=== PATIENT | female | born 1960 | race Caucasian/White ===

== ENCOUNTER 2016-08-18 06:07 | Emergency (ER) | payer SELFPAY ==
[~2016-08-18] VITALS: Ht 160 cm; Wt 85.0 kg
[~2016-08-18 06:07] MED LIST: ASPI81 PO; GLIP10TA6 PO; HCTZ25 PO; LISI-363 PO; LOVA20TA PO; POTA-243 PO; PROM25TA5 PO; RANI150T PO
[2016-08-18 06:10] VITALS: RESP 14; O2SAT 98
[2016-08-18 06:12] VITALS: BP 175/91; PULSE 79; RESP 16; TEMP 98.3; O2SAT 96
[2016-08-18] MEDS ORDERED: SODIUM CHLOR 0.9% 1000 ML INJ 1,000 ML IV SCH (06:20)
[2016-08-18] MEDS ORDERED: HYDR25TA5 PO (06:22)
[2016-08-18] MEDS ORDERED: ASPI1TAB69 PO (06:22)
[2016-08-18] MEDS ORDERED: AMLO5TAB2 PO (06:22)
[2016-08-18] MEDS ORDERED: GLIP10TA6 PO (06:22)
[2016-08-18] MEDS ORDERED: LOVA20TA PO (06:22)
[2016-08-18] MEDS ORDERED: LISI-515 PO (06:22)
[2016-08-18] MEDS ORDERED: SODIUM CHLORIDE 0.9% FLUSH 10 ML FLUSH IVF PRN (06:30)
--- NOTE | 2016-08-18 06:43 | RADRPT ---
EXAM DATE/TIME: 08/18/2016 06:31 [facility] COMPARISON: CT BRAIN W/O CONTRAST, January 18, 2016, 15:41. INDICATIONS : Altered mental status RADIATION DOSE: 43.18 CTDIvol (mGy) MEDICAL HISTORY : Cerebrovascular disease. Cardiovascular disease Hypertension.Diabetes. SURGICAL HISTORY : Cholecystectomy. Tubal ligation. ENCOUNTER: Initial ACUITY: 1 day PAIN SCALE: 0/10 LOCATION: Bilateral cranial TECHNIQUE: Multiple contiguous axial images were obtained of the head. Using automated exposure control and adj ustment of the mA and/or kV according to patient size, radiation dose was kept as low as reasonably a chievable to obtain optimal diagnostic quality images. FINDINGS: CEREBRUM: The ventricles are normal for age. No evidence of midline shift, mass lesion, hemorrhage or acute in farction. No extra-axial fluid collections are seen. POSTERIOR FOSSA: The cerebellum and brainstem are intact. The 4th ventricle is midline. The cerebellopontine angle i s unremarkable. EXTRACRANIAL: The visualized portion of the orbits is intact. SKULL: The calvaria is intact. No evidence of skull fracture. CONCLUSION: Normal examination. Zaki Kamara Jr., MD on August 18, 2016 at 6:40 Board Certified Radiologist. This report was verified electronically.
--- NOTE | 2016-08-18 06:49 | PD ---
HPI Chief Complaint: Chest Pain Time Seen by Provider: 06:20 Travel History International Travel<30 days: No Contact w/Intl Traveler<30days: No Traveled to known affect area: No History of Present Illness HPI Patient 55-year-old female presents emergency department for evaluation of feeling like she was being closed in the boxes morning. Patient apparently awoke oximetry 20 minutes prior to arrival screaming that her chest hurt her. Patient's roommates at home called 911 after she started complaining of chest pain. Patient was just released from [facility] late last month she stated that she had a cardiac catheterization at time which showed 40-50% blockages. She did not have a heart attack at that time. Patient states she doesn't remember complaining of chest pain does remember feeling like she woke up in a box. EMS reported some mild slurred speech in route. Apparently the patient was a GCS of 9 initially and an NPA was passed into her nose which caused her to have a GCS of 15. Patient on arrival states she feels fine and has no complaints. She denies any chest pain abdominal pain nausea vomiting diarrhea extremity pain. EMS reported that the house was very unkempt. PFSH Past Medical History Autoimmune Disease: No Heart Rhythm Problems: No Cancer: No Cardiac Catheterization: Yes (X2) Cardiovascular Problems: Yes High Cholesterol: Yes Chest Pain: Yes Congestive Heart Failure: No Cerebrovascular Accident: Yes Diabetes: Yes Patient Takes Glucophage: Yes Diminished Hearing: No Endocrine: Yes Gastrointestinal Disorders: Yes GERD: Yes Genitourinary: No Hiatal Hernia: Yes Hypertension: Yes Immune Disorder: No Musculoskeletal: Yes (BROKEN TOE RECENTLY) Neurologic: Yes Psychiatric: No Reproductive: No Respiratory: No Immunizations Current: Yes Myocardial Infarction: Yes (X2) Thyroid Disease: No Tetanus Vaccination: < 5 Years Influenza Vaccination: No Menopausal: Yes Tubal Ligation: Yes Past Surgical History Abdominal Surgery: Yes (CHOLECYSTECTOMY) AICD: No Arteriovenous Shunt: No Cardiac Surgery: Yes (CARDIAC CATH X 2) Cholecystectomy: Yes Coronary Artery Bypass Graft: No Ear Surgery: No Endocrine Surgery: No Eye Surgery: No Genitourinary Surgery: No Gynecologic Surgery: Yes (TUBAL LIGATION) Insulin Pump: No Joint Replacement: No Oral Surgery: No Pacemaker: No Thoracic Surgery: No Other Surgery: Yes Family History Family Myocardial Infarction: Yes Social History Alcohol Use: No Tobacco Use: No Substance Use: No Allergies-Medications (Allergen,Severity, Reaction): Coded Allergies: Codeine (Verified Adverse Reaction, Intermediate, 'BENDS OVER' WITH PAIN, 08/18/16) Reported Meds & Prescriptions Reported Meds & Active Scripts Active Synthroid (Levothyroxine Sodium) 50 Mcg Tab 50 Mcg PO DAILY Reported Lisinopril 20 Mg Tab 20 Mg PO DAILY Aspirin 81 Mg Tabdr 81 Mg PO DAILY Glipizide 10 Mg Tab 10 Mg PO BIDAC Take 30 minutes before a meal Lovastatin 20 Mg Tab 20 Mg PO DAILY Hydrochlorothiazide 25 Mg Tab 25 Mg PO DAILY Amlodipine (Amlodipine Besylate) 5 Mg Tab 5 Mg PO DAILY Review of Systems Except as stated in HPI: all other systems reviewed are Neg Physical Exam Narrative GENERAL: Well-developed, unkempt, dry mucous membranes in no apparent distress. SKIN: Focused skin assessment warm/dry. No skin breakdown and no rashes around seen. HEAD: Atraumatic. Normocephalic. EYES: Pupils equal and round. No scleral icterus. No injection or drainage. ENT: No nasal bleeding or discharge. Mucous membranes pink and dry. NECK: Trachea midline. No JVD. CARDIOVASCULAR: Regular rate and rhythm. No murmur appreciated. RESPIRATORY: No accessory muscle use. Clear to auscultation. Breath sounds equal bilaterally. GASTROINTESTINAL: Abdomen soft, non-tender, nondistended. Hepatic and splenic margins not palpable. MUSCULOSKELETAL: No obvious deformities. No clubbing. No cyanosis. No edema. NEUROLOGICAL: Awake and alert. No obvious cranial nerve deficits. Motor grossly within normal limits. Normal speech. PSYCHIATRIC: Appropriate mood and affect; insight and judgment normal. Data Data Last Documented VS Vital Signs Date Time Temp Pulse Resp B/P Pulse Ox O2 Delivery O2 Flow Rate FiO2 08/18/16 10:19 98.1 78 17 128/79 99 08/18/16 07:11 Nasal Cannula 2 Orders Electrocardiogram (08/18/16 06:20) Ammonia (08/18/16 06:20) Complete Blood Count With Diff (08/18/16 06:20) Comprehensive Metabolic Panel (08/18/16 06:20) Prothrombin Time / Inr (Pt) (08/18/16 06:20) Act Partial Throm Time (Ptt) (08/18/16 06:20) Troponin I (08/18/16 06:20) Thyroid Stimulating Hormone (08/18/16 06:20) Urinalysis - C+S If Indicated (08/18/16 06:20) Ct Brain W/O Iv Contrast(Rout) (08/18/16 06:20) Blood Glucose (08/18/16 06:20) Ecg Monitoring (08/18/16 06:20) Iv Access Insert/Monitor (08/18/16 06:20) Oximetry (08/18/16 06:20) Sodium Chloride 0.9% Flush (Ns Flush) (08/18/16 06:30) Sodium Chlor 0.9% 1000 Ml Inj (Ns 1000 M (08/18/16 06:20) Drug Screen, Random Urine (08/18/16 06:20) Alcohol (Ethanol) (08/18/16 06:20) Salicylates (Aspirin) (08/18/16 06:20) Tylenol (Acetaminophen) (08/18/16 06:20) Chest, Single Ap (08/18/16 ) Levothyroxine (Synthroid) (08/18/16 08:30) Labs Laboratory Tests Test 08/18/16 08/18/16 06:40 07:30 White Blood Count 11.6 TH/MM3 Red Blood Count 5.20 MIL/MM3 Hemoglobin 14.7 GM/DL Hematocrit 43.6 % Mean Corpuscular Volume 83.9 FL Mean Corpuscular Hemoglobin 28.3 PG Mean Corpuscular Hemoglobin 33.7 % Concent Red Cell Distribution Width 13.9 % Platelet Count 277 TH/MM3 Mean Platelet Volume 9.6 FL Neutrophils (%) (Auto) 86.0 % Lymphocytes (%) (Auto) 11.1 % Monocytes (%) (Auto) 2.4 % Eosinophils (%) (Auto) 0.1 % Basophils (%) (Auto) 0.4 % Neutrophils # (Auto) 10.0 TH/MM3 Lymphocytes # (Auto) 1.3 TH/MM3 Monocytes # (Auto) 0.3 TH/MM3 Eosinophils # (Auto) 0.0 TH/MM3 Basophils # (Auto) 0.0 TH/MM3 CBC Comment DIFF FINAL Differential Comment Sodium Level 134 MEQ/L Potassium Level 5.2 MEQ/L Chloride Level 101 MEQ/L Carbon Dioxide Level 24.2 MEQ/L Anion Gap 9 MEQ/L Blood Urea Nitrogen 19 MG/DL Creatinine 1.06 MG/DL Estimat Glomerular Filtration 53 ML/MIN Rate Random Glucose 61 MG/DL Calcium Level 9.0 MG/DL Total Bilirubin 0.5 MG/DL Aspartate Amino Transf 61 U/L (AST/SGOT) Alanine Aminotransferase 60 U/L (ALT/SGPT) Alkaline Phosphatase 96 U/L Ammonia 32 MCMOL/L Troponin I 0.02 NG/ML Total Protein 7.8 GM/DL Albumin 3.5 GM/DL Thyroid Stimulating Hormone 4.290 uIU/ML 3rd Gen Salicylates Level LESS THAN 1.7 MG/DL Acetaminophen Level LESS THAN 2.0 MCG/ML Ethyl Alcohol Level LESS THAN 3 MG/DL Prothrombin Time 10.8 SEC Prothromb Time International 1.0 RATIO Ratio Activated Partial 24.7 SEC Thromboplast Time MDM Medical Decision Making Medical Screen Exam Complete: Yes Emergency Medical Condition: Yes Interpretation(s) EKG shows normal sinus rhythm with a normal axis normal R-wave progression. Intervals within normal limits. Is a nonspecific T-wave abnormality which is highly inconsistent with ischemia. This borderline EKG. Differential Diagnosis Altered mental status, ACS unlikely, NV unlikely, brief psychotic episode is possible. Narrative Course Patient was roomed in emergency department, records been requested from [facility]. Her initial EKG is reassuring. CT head is negative. Discussed with Dr. Coker to follow up labs and disposition appropriately. Her description of what happened actually sounds similiar to childhood night-terrors. Highly atypical for ACS or serious underlying pathology. Scripts Levothyroxine (Synthroid)50 Mcg Tab50 Mcg PO DAILY #30 TAB Ref 0 Prov:Nicholas Coker MD 08/18/16 Brody Gregg MD Aug 18, 2016 06:49
[2016-08-18 07:08] LABS: BASOPHIL % 0.4 % (0.0-2.0); EOSINOPHIL % 0.1 % (0.0-4.0); HEMATOCRIT 43.6 % (35.0-46.0); HEMO FLAGS DIFF FINAL; LYMPH % 11.1 % (9.0-44.0); LYMPHOCYTE # 1.3 TH/MM3 (1.0-4.8); MEAN CELL VOLUME 83.9 FL (80.0-100.0); MEAN CORPUSCULAR HEMOGLOBIN 28.3 PG (27.0-34.0); MEAN CORPUSCULAR HGB CONC 33.7 % (32.0-36.0); MONO % 2.4 % (0.0-8.0); PLATELET COUNT 277 TH/MM3 (150-450); RED CELL DISTRIBUTION WIDTH 13.9 % (11.6-17.2); WHITE BLOOD COUNT 11.6 TH/MM3 (4.0-11.0)
[2016-08-18 07:11] VITALS: BP 141/81; PULSE 78; RESP 16; RESP 18; TEMP 97.8; O2SAT 100; O2SAT 98
[2016-08-18 07:32] LABS: ALKALINE PHOSPHATASE 96 U/L (45-117); TOTAL BILIRUBIN ADULT 0.5 MG/DL (0.2-1.0)
[2016-08-18 07:41] LABS: ALT (GPT) 60 U/L (10-53); ANION GAP 9 MEQ/L (5-15); AST (GOT) 61 U/L (15-37); BICARBONATE 24.2 MEQ/L (21.0-32.0); BLOOD UREA NITROGEN 19 MG/DL (7-18); CHLORIDE 101 MEQ/L (98-107); GLOMERULAR FILTRATION RATE 53 ML/MIN (>89); SODIUM (NA) 134 MEQ/L (136-145)
[2016-08-18 07:42] LABS: POTASSIUM 5.2 MEQ/L (3.5-5.1)
[2016-08-18 07:43] LABS: ACETAMINOPHEN LESS THAN 2.0 MCG/ML (10.0-30.0)
--- NOTE | 2016-08-18 07:44 | PD ---
Physical Exam Date Seen by Provider: Aug 18, 2016 Time Seen by Provider: 07:42 Narrative 55-year-old female came to the emergency room for bizarre events. She woke up screaming from her sleep and said she felt like she woke up in a box. She was seen by the previous ER physician. EMS said when they got her initially she had a GCS of 9 but then came back to GCS of 14-15 by the time she arrived to the emergency room. Here she has not complained of any pain of any sort and keeps repeating that she felt like she woke up in a box. There was a CAT scan of her head done which was within normal limits. Sign out was to follow-up on her blood test results. I'm waiting for the labs to come back. Meanwhile I went and reassessed her. She was asleep but then woke up and said she was cold. She looked a little anxious. But did not appear to be in any distress. Denies any pain anywhere. If the blood test results are within normal limit I will discharge her home. Data Data Last Documented VS Vital Signs Date Time Temp Pulse Resp B/P Pulse Ox O2 Delivery O2 Flow Rate FiO2 08/18/16 10:19 98.1 78 17 128/79 99 08/18/16 07:11 Nasal Cannula 2 Orders Electrocardiogram (08/18/16 06:20) Ammonia (08/18/16 06:20) Complete Blood Count With Diff (08/18/16 06:20) Comprehensive Metabolic Panel (08/18/16 06:20) Prothrombin Time / Inr (Pt) (08/18/16 06:20) Act Partial Throm Time (Ptt) (08/18/16 06:20) Troponin I (08/18/16 06:20) Thyroid Stimulating Hormone (08/18/16 06:20) Ct Brain W/O Iv Contrast(Rout) (08/18/16 06:20) Blood Glucose (08/18/16 06:20) Ecg Monitoring (08/18/16 06:20) Iv Access Insert/Monitor (08/18/16 06:20) Oximetry (08/18/16 06:20) Sodium Chloride 0.9% Flush (Ns Flush) (08/18/16 06:30) Sodium Chlor 0.9% 1000 Ml Inj (Ns 1000 M (08/18/16 06:20) Alcohol (Ethanol) (08/18/16 06:20) Salicylates (Aspirin) (08/18/16 06:20) Tylenol (Acetaminophen) (08/18/16 06:20) Chest, Single Ap (08/18/16 ) Levothyroxine (Synthroid) (08/18/16 08:30) Labs Laboratory Tests Test 08/18/16 08/18/16 06:40 07:30 White Blood Count 11.6 TH/MM3 Red Blood Count 5.20 MIL/MM3 Hemoglobin 14.7 GM/DL Hematocrit 43.6 % Mean Corpuscular Volume 83.9 FL Mean Corpuscular Hemoglobin 28.3 PG Mean Corpuscular Hemoglobin 33.7 % Concent Red Cell Distribution Width 13.9 % Platelet Count 277 TH/MM3 Mean Platelet Volume 9.6 FL Neutrophils (%) (Auto) 86.0 % Lymphocytes (%) (Auto) 11.1 % Monocytes (%) (Auto) 2.4 % Eosinophils (%) (Auto) 0.1 % Basophils (%) (Auto) 0.4 % Neutrophils # (Auto) 10.0 TH/MM3 Lymphocytes # (Auto) 1.3 TH/MM3 Monocytes # (Auto) 0.3 TH/MM3 Eosinophils # (Auto) 0.0 TH/MM3 Basophils # (Auto) 0.0 TH/MM3 CBC Comment DIFF FINAL Differential Comment Sodium Level 134 MEQ/L Potassium Level 5.2 MEQ/L Chloride Level 101 MEQ/L Carbon Dioxide Level 24.2 MEQ/L Anion Gap 9 MEQ/L Blood Urea Nitrogen 19 MG/DL Creatinine 1.06 MG/DL Estimat Glomerular Filtration 53 ML/MIN Rate Random Glucose 61 MG/DL Calcium Level 9.0 MG/DL Total Bilirubin 0.5 MG/DL Aspartate Amino Transf 61 U/L (AST/SGOT) Alanine Aminotransferase 60 U/L (ALT/SGPT) Alkaline Phosphatase 96 U/L Ammonia 32 MCMOL/L Troponin I 0.02 NG/ML Total Protein 7.8 GM/DL Albumin 3.5 GM/DL Thyroid Stimulating Hormone 4.290 uIU/ML 3rd Gen Salicylates Level LESS THAN 1.7 MG/DL Acetaminophen Level LESS THAN 2.0 MCG/ML Ethyl Alcohol Level LESS THAN 3 MG/DL Prothrombin Time 10.8 SEC Prothromb Time International 1.0 RATIO Ratio Activated Partial 24.7 SEC Thromboplast Time MDM Supervised Visit with RASHID: No Narrative Course 8:20 AM blood test results of back and TSH is elevated. I've ordered 50 g of Synthroid for her to be taken here. She will be discharged home on a prescription. Chest x-ray was not officially read but I looked at it and it looked to be within normal limits. Diagnosis Primary Impression: Panic attack Additional Impressions: Hypothyroidism Qualified Code: E03.9 - Hypothyroidism, unspecified type Anxiety Referrals: Primary Care Physician 2 days Additional Instruction: Please return to the ER if the condition worsens or any other new concerns. Take the medication as per the prescription direction. Follow-up with your primary care in couple days. You should get a repeat thyroid tests done after 2 weeks of being on medication. Med/Other Pt SpecificInfo: Prescription(s) given Scripts Levothyroxine (Synthroid)50 Mcg Tab50 Mcg PO DAILY #30 TAB Ref 0 Prov:Nicholas Coker MD 08/18/16 Disposition: 01 DISCHARGE HOME Condition: Stable Nicholas Coker MD Aug 18, 2016 07:44
[2016-08-18 08:17] LABS: APTT (PATIENT) 24.7 SEC (24.3-30.1); PROTHROMBIN TIME - PATIENT 10.8 SEC (9.8-11.6)
[2016-08-18] MEDS ORDERED: LEVO.05 PO (08:22)
[2016-08-18] MEDS ORDERED: LEVOTHYROXINE SODIUM 50 MCG TAB PO ONE (08:30)
--- NOTE | 2016-08-18 09:18 | RADRPT ---
EXAM DATE/TIME: 08/18/2016 07:41 [facility] COMPARISON: CHEST SINGLE AP, January 18, 2016, 15:40. INDICATIONS : Chest pain, shortness of breath. MEDICAL HISTORY : Hypertension. Myocardial infarction. Diabetes mellitus type II. GERD. Smoker. SURGICAL HISTORY : Cholecystectomy. ENCOUNTER: Initial ACUITY: 2 days PAIN SCORE: 4/10 LOCATION: Bilateral chest FINDINGS: The heart is normal size. The lungs are clear. The mediastinal contours are within normal limits. The bony structures demonstrate mild degenerative changes but are otherwise intact. The examination does demonstrate to radiodense foreign bodies over the neck what appears to be the ba se of the ear ring. The second is somewhat lower. Presumably these are both outside the patient if th ere's concern for foreign body repeat examination should be performed. CONCLUSION: 1. No acute cardiopulmonary findings. Please see above. Naeem Dean MD on August 18, 2016 at 9:15 Board Certified Radiologist. This report was verified electronically.
[2016-08-18 10:19] VITALS: BP 128/79; TEMP 98.1
--- NOTE | 2016-08-18 10:36 | EKG ---
Date Performed: 08/18/2016 Time Performed: 06:14:30 PTAGE: 55 years EKG: Sinus rhythm NONSPECIFIC T-WAVE ABNORMALITY Compared to previous tracing, the patient is no longer bradycardic . BORDERLINE ECG PREVIOUS TRACING : 01/18/2016 15.52 DOCTOR: Misty Leung Interpretating Date/Time 08/18/2016 10:27:59
== END 2016-08-18 10:20 | disposition home or self-care (01) ==
LOC: NEPE 06:07
DX: F41.0 Panic disorder [episodic paroxysmal anxiety] (principal); E03.9 Hypothyroidism, unspecified; Z79.899 Other long term (current) drug therapy
CPT/HCPCS: 70450; 71010; 80053; 80307; 82140; 84443; 84484; 85025; 85610; 85730; 93005; 96360; 99285; J7030

== ENCOUNTER 2017-01-19 22:59 | Emergency (ER) | payer SELFPAY ==
[~2017-01-19] VITALS: Ht 157.5 cm; Wt 86.0 kg
[~2017-01-19 22:59] MED LIST changes: +AMLO5TAB2 PO; +ASPI1TAB69 PO; -ASPI81 PO; -HCTZ25 PO; +HYDR25TA5 PO; +LEVO.05 PO; -LISI-363 PO; +LISI-515 PO; -POTA-243 PO; -PROM25TA5 PO; -RANI150T PO
[2017-01-19 23:03] VITALS: BP 210/101; PULSE 50; RESP 16; TEMP 98.5; O2SAT 98
[2017-01-19] MEDS ORDERED: METF850T PO (23:35)
[2017-01-19 23:55] VITALS: BP 181/91; PULSE 44; RESP 16; O2SAT 100
[2017-01-20] MEDS ORDERED: cloNIDine HCL 0.1 MG TAB PO ONE
[2017-01-20] MEDS ORDERED: ORPHENADRINE INJ 60 MG/2 ML AMP IM ONE
--- NOTE | 2017-01-20 00:04 | PD ---
HPI Chief Complaint: Pain: Acute or Chronic Time Seen by Provider: 23:32 Travel History International Travel<30 days: No Contact w/Intl Traveler<30days: No Traveled to known affect area: No History of Present Illness HPI Patient is a 56-year-old female presenting to the emergency department for evaluation of right hip pain. Patient states the pain started after she stepped on some unknown object in her yard this afternoon. She did not fall or injure her hip at that time. She states that after she stepped on something she went into her house and sat on the couch and an hour or 2 later she got up and that's when her hip started hurting. Patient states the pain is a 10 out of 10, she states it's aching and sore when she tries to walk. She denies any numbness, weakness, bladder or bowel incontinence, saddle paresthesia. Again patient did not injure her hip, she didn't fall on it or twist it. PFSH Past Medical History Cardiac Catheterization: Yes (X2) Cardiovascular Problems: Yes High Cholesterol: Yes Chest Pain: Yes Cerebrovascular Accident: Yes Coronary Artery Disease: Yes Diabetes: Yes Patient Takes Glucophage: Yes Gastrointestinal Disorders: Yes GERD: Yes Hiatal Hernia: Yes Hypertension: Yes Neurologic: Yes Immunizations Current: Yes Myocardial Infarction: Yes (X2) Thyroid Disease: Yes Tetanus Vaccination: Unknown ?: Not Menopausal: Yes Tubal Ligation: Yes Past Surgical History Abdominal Surgery: Yes (CHOLECYSTECTOMY) AICD: No Arteriovenous Shunt: No Cardiac Surgery: Yes (CARDIAC CATH X 2) Cholecystectomy: Yes Coronary Artery Bypass Graft: No Ear Surgery: No Endocrine Surgery: No Eye Surgery: No Genitourinary Surgery: No Gynecologic Surgery: Yes (TUBAL LIGATION) Insulin Pump: No Joint Replacement: No Oral Surgery: No Pacemaker: No Thoracic Surgery: No Other Surgery: Yes Social History Alcohol Use: No Tobacco Use: No Substance Use: No Allergies-Medications (Allergen,Severity, Reaction): Coded Allergies: codeine (Verified Adverse Reaction, Intermediate, 'BENDS OVER' WITH PAIN, 01/19/17) Reported Meds & Prescriptions Reported Meds & Active Scripts Active Meloxicam 15 Mg Tab 15 Mg PO DAILY PRN Metformin (Metformin HCl) 850 Mg Tab 850 Mg PO DAILY 30 Days With a meal Synthroid (Levothyroxine Sodium) 50 Mcg Tab 50 Mcg PO DAILY Lisinopril 20 Mg Tab 20 Mg PO DAILY Glipizide 10 Mg Tab 10 Mg PO BIDAC Take 30 minutes before a meal Lovastatin 20 Mg Tab 20 Mg PO DAILY Hydrochlorothiazide 25 Mg Tab 25 Mg PO DAILY Amlodipine (Amlodipine Besylate) 5 Mg Tab 10 Mg PO DAILY Reported Aspirin 81 Mg Tabdr 81 Mg PO DAILY Review of Systems Except as stated in HPI: all other systems reviewed are Neg Musculoskeletal: Positive: Myalgias, Arthralgias, Pain Physical Exam Narrative GENERAL: Overweight, well-developed, alert female. Resting comfortably in no acute distress. SKIN: Warm and dry. No rash or obvious lesions noted. HEAD: Normocephalic. EYES: No scleral icterus. No injection or drainage. NECK: Supple, trachea midline. No JVD or lymphadenopathy. CARDIOVASCULAR: Regular rate and rhythm without murmurs, gallops, or rubs. RESPIRATORY: Breath sounds equal bilaterally. No accessory muscle use. GASTROINTESTINAL: Abdomen soft, non-tender, nondistended. MUSCULOSKELETAL: No cyanosis, or edema. Right hip is nontender to palpation, full range of motion.. No pain in paraspinal musculature lumbar region or on lumbar spine. No step-off noted. Patient is neurovascularly intact. BACK: Nontender without obvious deformity. No CVA tenderness. Data Data Last Documented VS Vital Signs Date Time Temp Pulse Resp B/P (MAP) Pulse Ox O2 Delivery O2 Flow Rate FiO2 01/20/17 03:11 165/70 (101) 01/19/17 23:55 44 16 100 Room Air 01/19/17 23:03 98.5 Orders Orders Orphenadrine Inj (Norflex Inj) (01/20/17 00:00) Clonidine (Catapres) (01/20/17 00:00) Complete Blood Count With Diff (01/20/17 01:00) Comprehensive Metabolic Panel (01/20/17 01:00) Troponin I (01/20/17 01:00) Lisinopril (Prinivil) (01/20/17 01:00) Hydrochlorothiazide (Hydrodiuril) (01/20/17 01:00) Amlodipine (Norvasc) (01/20/17 01:00) Labs Laboratory Tests Test 01/20/17 01:40 01/20/17 02:25 Blood Urea Nitrogen 17 MG/DL Creatinine 0.99 MG/DL Random Glucose 113 MG/DL Total Protein 6.8 GM/DL Albumin 3.2 GM/DL Calcium Level 8.5 MG/DL Alkaline Phosphatase 93 U/L Aspartate Amino Transf (AST/SGOT) 20 U/L Alanine Aminotransferase (ALT/SGPT) 26 U/L Total Bilirubin 0.2 MG/DL Sodium Level 142 MEQ/L Potassium Level 3.6 MEQ/L Chloride Level 110 MEQ/L Carbon Dioxide Level 24.8 MEQ/L Anion Gap 7 MEQ/L Estimat Glomerular Filtration Rate 58 ML/MIN Troponin I LESS THAN 0.02 NG/ML White Blood Count 7.5 TH/MM3 Red Blood Count 4.61 MIL/MM3 Hemoglobin 13.1 GM/DL Hematocrit 39.3 % Mean Corpuscular Volume 85.2 FL Mean Corpuscular Hemoglobin 28.5 PG Mean Corpuscular Hemoglobin Concent 33.4 % Red Cell Distribution Width 12.6 % Platelet Count 214 TH/MM3 Mean Platelet Volume 8.5 FL Neutrophils (%) (Auto) 52.8 % Lymphocytes (%) (Auto) 35.6 % Monocytes (%) (Auto) 8.7 % Eosinophils (%) (Auto) 2.3 % Basophils (%) (Auto) 0.6 % Neutrophils # (Auto) 4.0 TH/MM3 Lymphocytes # (Auto) 2.7 TH/MM3 Monocytes # (Auto) 0.6 TH/MM3 Eosinophils # (Auto) 0.2 TH/MM3 Basophils # (Auto) 0.0 TH/MM3 CBC Comment DIFF FINAL Differential Comment MDM Medical Decision Making Medical Screen Exam Complete: Yes Emergency Medical Condition: Yes Interpretation(s) Vital Signs Date Time Temp Pulse Resp B/P (MAP) Pulse Ox O2 Delivery O2 Flow Rate FiO2 01/20/17 03:11 165/70 (101) 01/20/17 02:38 195/84 (121) 01/20/17 01:30 231/104 (146) 01/19/17 23:55 44 16 181/91 (121) 100 Room Air 01/19/17 23:03 98.5 50 16 210/101 (137) 98 Laboratory Tests Test 01/20/17 01:40 01/20/17 02:25 Blood Urea Nitrogen 17 MG/DL Creatinine 0.99 MG/DL Random Glucose 113 MG/DL Total Protein 6.8 GM/DL Albumin 3.2 GM/DL Calcium Level 8.5 MG/DL Alkaline Phosphatase 93 U/L Aspartate Amino Transf (AST/SGOT) 20 U/L Alanine Aminotransferase (ALT/SGPT) 26 U/L Total Bilirubin 0.2 MG/DL Sodium Level 142 MEQ/L Potassium Level 3.6 MEQ/L Chloride Level 110 MEQ/L Carbon Dioxide Level 24.8 MEQ/L Anion Gap 7 MEQ/L Estimat Glomerular Filtration Rate 58 ML/MIN Troponin I LESS THAN 0.02 NG/ML White Blood Count 7.5 TH/MM3 Red Blood Count 4.61 MIL/MM3 Hemoglobin 13.1 GM/DL Hematocrit 39.3 % Mean Corpuscular Volume 85.2 FL Mean Corpuscular Hemoglobin 28.5 PG Mean Corpuscular Hemoglobin Concent 33.4 % Red Cell Distribution Width 12.6 % Platelet Count 214 TH/MM3 Mean Platelet Volume 8.5 FL Neutrophils (%) (Auto) 52.8 % Lymphocytes (%) (Auto) 35.6 % Monocytes (%) (Auto) 8.7 % Eosinophils (%) (Auto) 2.3 % Basophils (%) (Auto) 0.6 % Neutrophils # (Auto) 4.0 TH/MM3 Lymphocytes # (Auto) 2.7 TH/MM3 Monocytes # (Auto) 0.6 TH/MM3 Eosinophils # (Auto) 0.2 TH/MM3 Basophils # (Auto) 0.0 TH/MM3 CBC Comment DIFF FINAL Differential Comment Vital Signs Date Time Temp Pulse Resp B/P (MAP) Pulse Ox O2 Delivery O2 Flow Rate FiO2 01/19/17 23:55 44 16 181/91 (121) 100 Room Air 01/19/17 23:03 98.5 50 16 210/101 (137) 98 Differential Diagnosis Osteoarthritis versus muscle strain versus muscle spasm versus radiculopathy versus other Narrative Course Patient is a 56-year-old female presenting to the emergency department evaluation of right hip pain. There was no preceding injury or trauma. Patient is neurovascularly intact. Physical examination is unremarkable. Patient's blood pressure was markedly elevated on arrival, it was reassessed at 180 systolic. Patient was given clonidine 0.1 mg 1 dose. Patient requested refills of her blood pressure medication. Reassessed, her blood pressure was significantly more elevated than on arrival even after dose of clonidine. Discussed with my attending physician Dr. Gregg. Will check routine labs, she will be given normal home doses of medications, amlodipine, lisinopril, HCTZ. Will reassess CBC, chemistry, cardiac enzymes reviewed, no acute abnormalities noted. BP was reassessed, this normalized with a systolic in the 160s. Patient was given written information regarding the incidental your clinic. She was given refills of her normal home medications. She was encouraged to maintain compliance to avoid rebound hypertension. Patient was encouraged to apply warm moist heat to her right hip, continue range of motion exercises and take meloxicam as needed for pain. Patient verbalized understanding of these instructions. Patient is stable for discharge. Diagnosis Primary Impression: Hip pain, right Additional Impression: Hypertension Qualified Codes: I10 - Essential (primary) hypertension Referrals: [facility] 1 week Patient Instructions: General Instructions, Hip Pain (ED), Hypertension (ED) Additional Instructions: Follow-up at the [facility] Return to emergency department for any new or worsening symptoms Take your medication as directed Apply warm moist heat to affected area, continue range of motion exercises, avoid exacerbating activities, avoid bed rest Med/Other Pt SpecificInfo: Prescription(s) given Scripts Meloxicam (Meloxicam) 15 Mg Tab 15 MG PO DAILY Y for PAIN SCALE 1 TO 10, #15 TAB 0 Refills Prov: Desi Del Rosario 01/20/17 Metformin (Metformin) 850 Mg Tab 850 MG PO DAILY for Blood Sugar Management for 30 Days, TAB 0 Refills With a meal Prov: Desi Del Rosario 01/20/17 Levothyroxine (Synthroid) 50 Mcg Tab 50 MCG PO DAILY for Thyroid, #30 TAB 0 Refills Prov: Desi Del Rosario 01/20/17 Lisinopril (Lisinopril) 20 Mg Tab 20 MG PO DAILY, #30 TAB 0 Refills Prov: Desi Del Rosario 01/20/17 Glipizide (Glipizide) 10 Mg Tab 10 MG PO BIDAC for Blood Sugar Management, #60 TAB 0 Refills Take 30 minutes before a meal Prov: Desi Del Rosario 01/20/17 Lovastatin (Lovastatin) 20 Mg Tab 20 MG PO DAILY for Cholesterol Management, #30 TAB 0 Refills Prov: Desi Del Rosario 01/20/17 Hydrochlorothiazide (Hydrochlorothiazide) 25 Mg Tab 25 MG PO DAILY, #30 TAB 0 Refills Prov: Desi Del Rosario 01/20/17 Amlodipine (Amlodipine) 5 Mg Tab 10 MG PO DAILY for Blood Pressure Management, #30 TAB 0 Refills Prov: Desi Del Rosario 01/20/17 Disposition: 01 DISCHARGE HOME Condition: Stable Desi Del Rosario Jan 20, 2017 00:04
[2017-01-20] MEDS ORDERED: LISI-515 PO (00:28)
[2017-01-20] MEDS ORDERED: GLIP10TA6 PO (00:28)
[2017-01-20] MEDS ORDERED: LEVO.05 PO (00:28)
[2017-01-20] MEDS ORDERED: METF850T PO (00:28)
[2017-01-20] MEDS ORDERED: LOVA20TA PO (00:28)
[2017-01-20] MEDS ORDERED: AMLO5TAB2 PO (00:28)
[2017-01-20] MEDS ORDERED: HYDR25TA5 PO (00:28)
[2017-01-20] MEDS ORDERED: MELO-1 PO (00:29)
[2017-01-20] MEDS ORDERED: HYDROCHLOROTHIAZIDE 25 MG TAB PO ONE (01:00)
[2017-01-20] MEDS ORDERED: LISINOPRIL 20 MG TAB PO ONE (01:00)
[2017-01-20 01:30] VITALS: BP 231/104
[2017-01-20 02:14] LABS: ANION GAP 7 MEQ/L (5-15); AST (GOT) 20 U/L (15-37); BICARBONATE 24.8 MEQ/L (21.0-32.0); BLOOD UREA NITROGEN 17 MG/DL (7-18); CHLORIDE 110 MEQ/L (98-107); GLOMERULAR FILTRATION RATE 58 ML/MIN (>89); POTASSIUM 3.6 MEQ/L (3.5-5.1); SODIUM (NA) 142 MEQ/L (136-145)
[2017-01-20 02:19] LABS: ALKALINE PHOSPHATASE 93 U/L (45-117); ALT (GPT) 26 U/L (10-53); TOTAL BILIRUBIN ADULT 0.2 MG/DL (0.2-1.0)
[2017-01-20 02:32] LABS: BASOPHIL % 0.6 % (0.0-2.0); EOSINOPHIL # 0.2 TH/MM3 (0-0.4); EOSINOPHIL % 2.3 % (0.0-4.0); HEMATOCRIT 39.3 % (35.0-46.0); HEMO FLAGS DIFF FINAL; LYMPH % 35.6 % (9.0-44.0); LYMPHOCYTE # 2.7 TH/MM3 (1.0-4.8); MEAN CELL VOLUME 85.2 FL (80.0-100.0); MEAN CORPUSCULAR HEMOGLOBIN 28.5 PG (27.0-34.0); MEAN CORPUSCULAR HGB CONC 33.4 % (32.0-36.0); MONO % 8.7 % (0.0-8.0); NEUT % 52.8 % (16.0-70.0); PLATELET COUNT 214 TH/MM3 (150-450); RED BLOOD COUNT 4.61 MIL/MM3 (4.00-5.30); RED CELL DISTRIBUTION WIDTH 12.6 % (11.6-17.2); WHITE BLOOD COUNT 7.5 TH/MM3 (4.0-11.0)
[2017-01-20 02:38] VITALS: BP 195/84
[2017-01-20 03:11] VITALS: BP 165/70
== END 2017-01-20 03:23 | disposition home or self-care (01) ==
LOC: NEPD 22:59
DX: M25.551 Pain in right hip (principal); I10 Essential (primary) hypertension; E78.00 Pure hypercholesterolemia, unspecified; I25.10 Atherosclerotic heart disease of native coronary artery without angina pectoris; E11.9 Type 2 diabetes mellitus without complications; K21.9 Gastro-esophageal reflux disease without esophagitis; E07.9 Disorder of thyroid, unspecified; I25.2 Old myocardial infarction; Z86.73 Personal history of transient ischemic attack (TIA), and cerebral infarction without residual deficits
CPT/HCPCS: 80053; 84484; 85025; 96372; 99284; J2360

== ENCOUNTER 2017-03-09 19:52 | Observation (INO) | payer SELFPAY ==
[2017-03-09] VITALS (8 sets, daily range): BP systolic 140–194; BP diastolic 75–89; PULSE 42–52; RESP 16; TEMP 98.8; O2SAT 95–97
[~2017-03-09] VITALS: Ht 157.5 cm; Wt 89.5 kg
[~2017-03-09 19:52] MED LIST changes: +MELO-1 PO; +METF850T PO
--- NOTE | 2017-03-09 20:08 | PD ---
HPI Chief Complaint: Chest Pain Time Seen by Provider: 20:01 Travel History International Travel<30 days: No Contact w/Intl Traveler<30days: No Traveled to known affect area: No History of Present Illness HPI 56-year-old female with history of hypertension, CAD, diabetes, hyperlipidemia, here for evaluation of chest pain and neck pain. Patient reports symptoms started this morning. She describes substernal chest pressure. She is also describing a discomfort in her right neck that is worse with movements. Chest pressure has been intermittent throughout the day today, currently 5 out of 10. No modifying factors. She has become nauseous with the pain. Mild dyspnea. No fevers, chills, cough, or recent illness. No paresthesias or motor deficits. No trauma. She took 81mg aspirin today. PFSH Past Medical History Cardiac Catheterization: Yes (X2) Cardiovascular Problems: Yes High Cholesterol: Yes Chest Pain: Yes Cerebrovascular Accident: Yes Coronary Artery Disease: Yes Diabetes: Yes Gastrointestinal Disorders: Yes GERD: Yes Hiatal Hernia: Yes Hypertension: Yes Neurologic: Yes Immunizations Current: Yes Myocardial Infarction: Yes (X2) Thyroid Disease: Yes ?: Not Menopausal: Yes Tubal Ligation: Yes Past Surgical History Abdominal Surgery: Yes (CHOLECYSTECTOMY) AICD: No Arteriovenous Shunt: No Cardiac Surgery: Yes (CARDIAC CATH X 2) Cholecystectomy: Yes Coronary Artery Bypass Graft: No Ear Surgery: No Endocrine Surgery: No Eye Surgery: No Genitourinary Surgery: No Gynecologic Surgery: Yes (TUBAL LIGATION) Insulin Pump: No Joint Replacement: No Oral Surgery: No Pacemaker: No Thoracic Surgery: No Other Surgery: Yes Social History Alcohol Use: No Tobacco Use: No Substance Use: No Allergies-Medications (Allergen,Severity, Reaction): Coded Allergies: codeine (Verified Adverse Reaction, Intermediate, 'BENDS OVER' WITH PAIN, 01/19/17) Reported Meds & Prescriptions Reported Meds & Active Scripts Active Synthroid (Levothyroxine Sodium) 50 Mcg Tab 50 Mcg PO DAILY Lisinopril 20 Mg Tab 20 Mg PO DAILY Glipizide 10 Mg Tab 10 Mg PO BIDAC Take 30 minutes before a meal Hydrochlorothiazide 25 Mg Tab 25 Mg PO DAILY Amlodipine (Amlodipine Besylate) 5 Mg Tab 10 Mg PO DAILY Reported Pravastatin 20 Mg Tab 20 Mg PO HS Ranitidine (Ranitidine HCl) 150 Mg Tab 150 Mg PO BID Glipizide 10 Mg Tab 10 Mg PO BIDAC Take 30 minutes before a meal Aspirin Low Dose (Aspirin) 81 Mg Chew 81 Mg CHEW DAILY Review of Systems Except as stated in HPI: all other systems reviewed are Neg Physical Exam Narrative GENERAL: Well-developed, well-nourished, comfortable, no apparent distress. SKIN: Focused skin assessment warm/dry. HEAD: Atraumatic. Normocephalic. EYES: Pupils equal and round. No scleral icterus. No injection or drainage. ENT: Mucous membranes pink and moist. NECK: Trachea midline. No JVD. No midline cervical spinous step-off or tenderness. No nuchal rigidity. No neck masses. CARDIOVASCULAR: Regular rate and rhythm. Distal pulses brisk and equal bilaterally. RESPIRATORY: No accessory muscle use. Clear to auscultation. Breath sounds equal bilaterally. GASTROINTESTINAL: Abdomen soft, non-tender, nondistended. MUSCULOSKELETAL: No obvious deformities. No clubbing. No cyanosis. No edema. NEUROLOGICAL: Awake and alert. No obvious cranial nerve deficits. Motor grossly within normal limits. Normal speech. Normal motor/sensory to all 4 extremities. PSYCHIATRIC: Appropriate mood and affect; insight and judgment normal. Data Data Last Documented VS Vital Signs Date Time Temp Pulse Resp B/P (MAP) Pulse Ox O2 Delivery O2 Flow Rate FiO2 03/09/17 22:01 43 16 173/88 (116) 97 164/79 (107) 03/09/17 19:56 98.8 Orders Orders Electrocardiogram (03/09/17 20:04) Ckmb (Isoenzyme) Profile (03/09/17 20:04) Complete Blood Count With Diff (03/09/17 20:04) Comprehensive Metabolic Panel (03/09/17 20:04) Prothrombin Time / Inr (Pt) (03/09/17 20:04) Act Partial Throm Time (Ptt) (03/09/17 20:04) Troponin I (03/09/17 20:04) Lipase (03/09/17 20:04) Chest, Single Ap (03/09/17 20:04) Ecg Monitoring (03/09/17 20:04) Iv Access Insert/Monitor (03/09/17 20:04) Oximetry (03/09/17 20:04) Aspirin Chew (Aspirin Chew) (03/09/17 20:15) Sodium Chloride 0.9% Flush (Ns Flush) (03/09/17 20:15) Nitroglycerin Sl (Nitrostat Sl) (03/09/17 20:15) Ondansetron Inj (Zofran Inj) (03/09/17 20:15) Spine, Cervical Compl([id number]) (03/09/17 ) CKMB (03/09/17 20:20) CKMB% (03/09/17 20:20) Bilateral Bp Monitoring (03/09/17 21:51) Labs Laboratory Tests Test 03/09/17 20:20 White Blood Count 4.5 TH/MM3 Red Blood Count 4.04 MIL/MM3 Hemoglobin 11.6 GM/DL Hematocrit 34.1 % Mean Corpuscular Volume 84.3 FL Mean Corpuscular Hemoglobin 28.7 PG Mean Corpuscular Hemoglobin Concent 34.1 % Red Cell Distribution Width 13.5 % Platelet Count 194 TH/MM3 Mean Platelet Volume 8.4 FL Neutrophils (%) (Auto) 50.8 % Lymphocytes (%) (Auto) 35.7 % Monocytes (%) (Auto) 10.7 % Eosinophils (%) (Auto) 2.4 % Basophils (%) (Auto) 0.4 % Neutrophils # (Auto) 2.3 TH/MM3 Lymphocytes # (Auto) 1.6 TH/MM3 Monocytes # (Auto) 0.5 TH/MM3 Eosinophils # (Auto) 0.1 TH/MM3 Basophils # (Auto) 0.0 TH/MM3 CBC Comment DIFF FINAL Differential Comment Prothrombin Time 10.7 SEC Prothromb Time International Ratio 1.0 RATIO Activated Partial Thromboplast Time 24.0 SEC Blood Urea Nitrogen 10 MG/DL Creatinine 0.93 MG/DL Random Glucose 122 MG/DL Total Protein 6.6 GM/DL Albumin 3.0 GM/DL Calcium Level 7.8 MG/DL Alkaline Phosphatase 75 U/L Aspartate Amino Transf (AST/SGOT) 27 U/L Alanine Aminotransferase (ALT/SGPT) 27 U/L Total Bilirubin 0.3 MG/DL Sodium Level 140 MEQ/L Potassium Level 4.0 MEQ/L Chloride Level 108 MEQ/L Carbon Dioxide Level 23.9 MEQ/L Anion Gap 8 MEQ/L Estimat Glomerular Filtration Rate 62 ML/MIN Total Creatine Kinase 176 U/L Creatine Kinase MB 1.6 NG/ML Troponin I LESS THAN 0.02 NG/ML Lipase 119 U/L [facility] Medical Decision Making Medical Screen Exam Complete: Yes Emergency Medical Condition: Yes Medical Record Reviewed: Yes Interpretation(s) EKG: Sinus, rate 47, leftward axis, normal intervals, no acute ischemic abnormality. Differential Diagnosis ACS, pneumothorax with peritonitis, PE, pneumonia, musculoskeletal pain, dissection unlikely Narrative Course Initial vital signs show heart rate 52, blood pressure 194/86, pulse ox 97% on room air, oral temp of 98.8F. CBC is unremarkable. CMP is unremarkable. Lipase is 119. Cardiac enzymes are negative. Chest x-ray shows no acute disease. Cervical spine x-ray shows degenerative spondylosis. Bilateral blood pressures were performed and show 173/88 in the right upper extremity, 164/79 in the left upper extremity. The patient was given aspirin and nitroglycerin. Chest pain resolved after sublingual nitroglycerin. She has several cardiac risk factors. She will be admitted to the chest pain center for further cardiac evaluation. She is amenable to this plan. Case discussed with hospitalist LUBNA Angulo covering for Dr. Mac. The patient will be admitted to their service. Diagnosis Primary Impression: Chest pain Qualified Codes: R07.9 - Chest pain, unspecified Additional Impression: Sinus bradycardia Admitting Information Admitting Physician Requests: Bud Reid MD Mar 09, 2017 20:08
[2017-03-09] MEDS ORDERED: NITROGLYCERIN 0.4 MG SL 25 TABS/BTL SL ONE (20:15)
[2017-03-09] MEDS ORDERED: SODIUM CHLORIDE 0.9% FLUSH 10 ML FLUSH IVF PRN (20:15)
[2017-03-09] MEDS ORDERED: ONDANSETRON HCL 4 MG/2 ML VIAL IV PUSH ONE (20:15)
[2017-03-09] MEDS ORDERED: ASPIRIN 81 MG CHEW TAB PO ONE (20:15)
[2017-03-09] MEDS ORDERED: PRAV20TA2 PO (20:45)
[2017-03-09] MEDS ORDERED: GLIP10TA6 PO (20:45)
[2017-03-09] MEDS ORDERED: RANI150T PO (20:45)
[2017-03-09] MEDS ORDERED: ASPI81CH37 CHEW (20:45)
[2017-03-09 20:48] LABS: CHLORIDE 108 MEQ/L (98-107); SODIUM (NA) 140 MEQ/L (136-145)
[2017-03-09 20:51] LABS: CALCIUM 7.8 MG/DL (8.5-10.1)
[2017-03-09 20:52] LABS: BICARBONATE 23.9 MEQ/L (21.0-32.0); BLOOD UREA NITROGEN 10 MG/DL (7-18); GLUCOSE,RANDOM 122 MG/DL (74-106); LIPASE 119 U/L (73-393)
[2017-03-09 20:54] LABS: PROTHROMBIN TIME - PATIENT 10.7 SEC (9.8-11.6)
[2017-03-09 20:55] LABS: ALT (GPT) 27 U/L (10-53); AST (GOT) 27 U/L (15-37); CREATININE 0.93 MG/DL (0.50-1.00); GLOMERULAR FILTRATION RATE 62 ML/MIN (>89)
[2017-03-09 20:56] LABS: TOTAL BILIRUBIN ADULT 0.3 MG/DL (0.2-1.0); TOTAL PROTEIN 6.6 GM/DL (6.4-8.2)
[2017-03-09 20:58] LABS: ALKALINE PHOSPHATASE 75 U/L (45-117)
[2017-03-09 21:00] LABS: TROPONIN I LESS THAN 0.02 NG/ML (0.02-0.05)
--- NOTE | 2017-03-09 21:16 | RADRPT ---
EXAM DATE/TIME: 03/09/2017 20:32 [facility] COMPARISON: No previous studies available for comparison. INDICATIONS : Neck pain today. MEDICAL HISTORY : Cerebrovascular disease. Cardiovascular disease. Hypertension. Diabetes. SURGICAL HISTORY : Cholecystectomy. Tubal ligation. ENCOUNTER: Initial ACUITY: 1 day PAIN SCORE: 8/10 LOCATION: Cervical. FINDINGS: Degenerative spondylosis is present at multiple levels to a moderate degree mainly at C5-6. No signi ficant subluxation or soft tissue swelling is seen. Osteophyte formation is present with minimal enc roachment on C5-C6 neural foramina without any significant neural foramina compromise. CONCLUSION: Degenerative spondylosis. Daya Kline MD on March 09, 2017 at 21:14 Board Certified Radiologist. This report was verified electronically.
--- NOTE | 2017-03-09 21:17 | RADRPT ---
EXAM DATE/TIME: 03/09/2017 20:32 [facility] COMPARISON: CHEST SINGLE AP, August 18, 2016, 7:41. INDICATIONS : Chest pain today. MEDICAL HISTORY : Cerebrovascular disease. Cardiovascular disease. Hypertension. Diabetes. SURGICAL HISTORY : Cholecystectomy. Tubal ligation. ENCOUNTER: Initial ACUITY: 1 day PAIN SCORE: 8/10 LOCATION: Bilateral chest FINDINGS: The lungs are clear without infiltrate, nodule, or mass. There is no appreciable pleural effusion fo r technique. Heart and mediastinum are unremarkable. CONCLUSION: No acute cardiopulmonary disease. Daya Kline MD on March 09, 2017 at 21:15 Board Certified Radiologist. This report was verified electronically.
[2017-03-09 22:00] LABS: AUTOMATED NEUTROPHIL # 2.3 TH/MM3 (1.8-7.7); BASOPHIL % 0.4 % (0.0-2.0); EOSINOPHIL # 0.1 TH/MM3 (0-0.4); EOSINOPHIL % 2.4 % (0.0-4.0); HEMATOCRIT 34.1 % (35.0-46.0); HEMOGLOBIN 11.6 GM/DL (11.6-15.3); LYMPH % 35.7 % (9.0-44.0); LYMPHOCYTE # 1.6 TH/MM3 (1.0-4.8); MEAN CELL VOLUME 84.3 FL (80.0-100.0); MEAN CORPUSCULAR HEMOGLOBIN 28.7 PG (27.0-34.0); MEAN CORPUSCULAR HGB CONC 34.1 % (32.0-36.0); MEAN PLATELET VOLUME 8.4 FL (7.0-11.0); MONO % 10.7 % (0.0-8.0); MONOCYTE # 0.5 TH/MM3 (0-0.9); NEUT % 50.8 % (16.0-70.0); PLATELET COUNT 194 TH/MM3 (150-450); RED BLOOD COUNT 4.04 MIL/MM3 (4.00-5.30); RED CELL DISTRIBUTION WIDTH 13.5 % (11.6-17.2); WHITE BLOOD COUNT 4.5 TH/MM3 (4.0-11.0)
--- NOTE | 2017-03-09 22:20 | EKG ---
Date Performed: 03/09/2017 Time Performed: 20:15:50 PTAGE: 56 years EKG: SINUS BRADYCARDIA BORDERLINE ECG PREVIOUS TRACING : 08/18/2016 06.14 Compared to the previous tracing rate slower DOCTOR: Ashly Yoo Interpretating Date/Time 03/09/2017 22:18:56
[2017-03-09] MEDS ORDERED: IOHEXOL 350 MG/ML 100 ML BTL (for Cath Lab) OTHER ONE (22:59)
[2017-03-09] MEDS ORDERED: SODIUM CHLORIDE 0.9% FLUSH 10 ML FLUSH IV FLUSH PRN (23:00)
[2017-03-09] MEDS ORDERED: NITROGLYCERIN 0.4 MG SL 25 TABS/BTL SL PRN (23:15)
[2017-03-10 00:25] VITALS: BP 174/89; PULSE 42; RESP 20; TEMP 96.4; O2SAT 94
[2017-03-10 01:53] LABS: TROPONIN I 0.03 NG/ML (0.02-0.05)
[2017-03-10 04:00] VITALS: BP 131/78; PULSE 44; RESP 20; TEMP 96.2; O2SAT 95
[2017-03-10 07:39] LABS: BASOPHIL % 0.6 % (0.0-2.0); EOSINOPHIL # 0.1 TH/MM3 (0-0.4); HEMATOCRIT 38.2 % (35.0-46.0); HEMOGLOBIN 12.9 GM/DL (11.6-15.3); LYMPH % 28.4 % (9.0-44.0); LYMPHOCYTE # 1.5 TH/MM3 (1.0-4.8); MEAN CELL VOLUME 85.1 FL (80.0-100.0); MEAN CORPUSCULAR HEMOGLOBIN 28.9 PG (27.0-34.0); MEAN CORPUSCULAR HGB CONC 33.9 % (32.0-36.0); MEAN PLATELET VOLUME 8.7 FL (7.0-11.0); MONO % 9.3 % (0.0-8.0); MONOCYTE # 0.5 TH/MM3 (0-0.9); NEUT % 59.7 % (16.0-70.0); PLATELET COUNT 183 TH/MM3 (150-450); RED BLOOD COUNT 4.48 MIL/MM3 (4.00-5.30); RED CELL DISTRIBUTION WIDTH 13.5 % (11.6-17.2); WHITE BLOOD COUNT 5.1 TH/MM3 (4.0-11.0)
[2017-03-10 07:50] VITALS: BP 143/87; PULSE 43; RESP 20; TEMP 96.4; O2SAT 96
[2017-03-10 07:53] LABS: CHLORIDE 109 MEQ/L (98-107); SODIUM (NA) 142 MEQ/L (136-145)
[2017-03-10 08:00] LABS: ALBUMIN 3.2 GM/DL (3.4-5.0); BICARBONATE 26.7 MEQ/L (21.0-32.0); BLOOD UREA NITROGEN 10 MG/DL (7-18); CALCIUM 8.5 MG/DL (8.5-10.1); GLUCOSE,RANDOM 105 MG/DL (74-106)
[2017-03-10 08:03] LABS: ALT (GPT) 28 U/L (10-53); AST (GOT) 17 U/L (15-37); CREATININE 0.86 MG/DL (0.50-1.00); GLOMERULAR FILTRATION RATE 68 ML/MIN (>89)
[2017-03-10 08:05] LABS: TOTAL BILIRUBIN ADULT 0.5 MG/DL (0.2-1.0); TOTAL PROTEIN 6.9 GM/DL (6.4-8.2)
[2017-03-10 08:06] LABS: ALKALINE PHOSPHATASE 78 U/L (45-117)
[2017-03-10 08:07] LABS: TROPONIN I 0.02 NG/ML (0.02-0.05)
[2017-03-10] MEDS ORDERED: PNEUMOCOCCAL POLYVALENT INJ 25 MCG/0.5 ML SYR IM ONE (09:00)
[2017-03-10] MEDS: SODIUM CHLORIDE 0.9% FLUSH 10 ML FLUSH IV FLUSH SCH ×2 (09:00→21:00)
[2017-03-10] MEDS ORDERED: INFLUENZA VIRUS VACCINE (QUADRIVALENT) 0.5 ML SYR IM ONE (09:00)
[2017-03-10 11:30] VITALS: BP 177/86; PULSE 46; RESP 20; TEMP 97.4; O2SAT 97
--- NOTE | 2017-03-10 11:55 | HHI.HP ---
[facility] No Primary Care Physician Admission Diagnosis chest pain, sinus bradycardia Diagnoses: (1) Chest pain Diagnosis: Principal Chief Complaint: Chest pain Travel History International Travel<30 Days: No Contact w/Intl Traveler <30 Da: No Traveled to Known Affected Are: No History of Present Illness Written by Gold Moran, acting as scribe for Dr. Sun on 03/10/17 at 11:44. 56-year-old female with known history of hypertension, hyperlipidemia , coronary artery disease, diabetes, history CVA who presented to hospital because of chest pain. Patient states that she was in her normal state of health until she was woke up yesterday morning at 5 AM with right neck pain and then started developing a left sternal border chest discomfort which she indicated was 5/10 on a pain scale. Patient states that the pain lasted for only a minute and resolved on its own. She did have some nausea without any vomiting. Denied any diaphoresis, shortness of breath, dyspnea, lightheadedness , dizziness. Patient states that she has had this same pain before. And has had previous workups in the past with stress test. She indicates that she does have history of myocardial infarction, states that she has undergone cardiac catheterizations and was told that she has blockages, however she denies any intervention with stenting or CABG. Patient states that she ran out of all her medications 4 days ago. She indicates that she does not have a primary medical doctor. Patient's last stress test was 2013 which was normal. At the present time patient is asymptomatic. Resting comfortably. Patient was placed in chest pain Center for observation. Review of Systems Cardiovascular: COMPLAINS OF: Chest pain Except as stated in HPI: all other systems reviewed are Neg Past Family Social History Past Medical History Hypertension Hyperlipidemia Coronary artery disease Diabetes Past Surgical History Cardiac catheterization Tubal ligation Cholecystectomy Reported Medications Patient states that she has been out of her meds for 5 days Reported Meds & Active Scripts Active Synthroid (Levothyroxine Sodium) 50 Mcg Tab 50 Mcg PO DAILY Lisinopril 20 Mg Tab 20 Mg PO DAILY Glipizide 10 Mg Tab 10 Mg PO BIDAC Take 30 minutes before a meal Hydrochlorothiazide 25 Mg Tab 25 Mg PO DAILY Amlodipine (Amlodipine Besylate) 5 Mg Tab 10 Mg PO DAILY Reported Pravastatin 20 Mg Tab 20 Mg PO HS Ranitidine (Ranitidine HCl) 150 Mg Tab 150 Mg PO BID Glipizide 10 Mg Tab 10 Mg PO BIDAC Take 30 minutes before a meal Aspirin Low Dose (Aspirin) 81 Mg Chew 81 Mg CHEW DAILY Allergies: Coded Allergies: codeine (Verified Adverse Reaction, Intermediate, 'BENDS OVER' WITH PAIN, 01/19/17) Family History Reviewed is significant for coronary artery disease, mother in her late 60s with early onset heart disease, coronary bypass surgery. Father in his 70s from CVA, COPD Social History Patient denies any tobacco, alcohol or illicit drugs Physical Exam Vital Signs Vital Signs Date Time Temp Pulse Resp B/P (MAP) Pulse Ox O2 Delivery O2 Flow Rate FiO2 03/10/17 07:50 96.4 43 20 143/87 (105) 96 03/10/17 04:00 96.2 44 20 131/78 (95) 95 03/10/17 00:25 96.4 42 20 174/89 (117) 94 03/10/17 00:00 03/09/17 23:40 46 16 188/89 (122) 95 Room Air 03/09/17 22:55 42 16 153/75 (101) 95 Room Air 03/09/17 22:01 43 16 173/88 (116) 97 164/79 (107) 03/09/17 21:55 42 16 173/88 (116) 95 Room Air 03/09/17 21:25 44 16 140/79 (99) 95 Room Air 03/09/17 21:04 16 03/09/17 20:55 52 16 141/79 (99) 95 Room Air 03/09/17 20:30 50 16 97 Room Air 03/09/17 20:00 16 96 Room Air 03/09/17 19:56 98.8 52 16 194/86 (122) 97 Physical Exam GENERAL: Well-developed, well-nourished, in no acute distress. alert and orientated HEENT: Head is normocephalic without any lesions or masses noted. Facial features are symmetric. Eyes: Pupils equal round reactive to light. Extraocular muscles are intact. Conjunctivae were clear. Oropharyngeal: Pharynx without any erythema edema. Tongue is midline without deviation. Buccal mucosa is moist without any masses or lesions NECK: Supple without any masses. Trachea midline no deviation. No JVD, no bruits are appreciated CARDIAC: Regular rhythm, bradycardic. S1/S2 are heard. No murmurs gallops or rubs. LUNGS: Clear to auscultation bilaterally. No wheeze, rhonchi or rales. No use of accessory muscles on inspiration or expiration. ABDOMEN: Soft, nontender. Nondistended. Bowel sounds heard in all 4 quadrants. No organomegaly or masses. Negative rebound, negative guarding EXTREMITIES: No edema, pulses are equal bilaterally. No cyanosis or clubbing NEUROLOGY: Mood and affect appear appropriate. Cranial nerves II through XII grossly intact. Muscle strength 5/5 in upper and lower extremities bilaterally. Deep tendon reflexes are 2+ in upper and lower extremities bilaterally. Laboratory Laboratory Tests Test 03/09/17 20:20 03/10/17 01:25 03/10/17 07:20 White Blood Count 4.5 5.1 Red Blood Count 4.04 4.48 Hemoglobin 11.6 12.9 Hematocrit 34.1 38.2 Mean Corpuscular Volume 84.3 85.1 Mean Corpuscular Hemoglobin 28.7 28.9 Mean Corpuscular Hemoglobin Concent 34.1 33.9 Red Cell Distribution Width 13.5 13.5 Platelet Count 194 183 Mean Platelet Volume 8.4 8.7 Neutrophils (%) (Auto) 50.8 59.7 Lymphocytes (%) (Auto) 35.7 28.4 Monocytes (%) (Auto) 10.7 9.3 Eosinophils (%) (Auto) 2.4 2.0 Basophils (%) (Auto) 0.4 0.6 Neutrophils # (Auto) 2.3 3.0 Lymphocytes # (Auto) 1.6 1.5 Monocytes # (Auto) 0.5 0.5 Eosinophils # (Auto) 0.1 0.1 Basophils # (Auto) 0.0 0.0 CBC Comment DIFF FINAL DIFF FINAL Differential Comment Prothrombin Time 10.7 Prothromb Time International Ratio 1.0 Activated Partial Thromboplast Time 24.0 Blood Urea Nitrogen 10 10 Creatinine 0.93 0.86 Random Glucose 122 105 Total Protein 6.6 6.9 Albumin 3.0 3.2 Calcium Level 7.8 8.5 Alkaline Phosphatase 75 78 Aspartate Amino Transf (AST/SGOT) 27 17 Alanine Aminotransferase (ALT/SGPT) 27 28 Total Bilirubin 0.3 0.5 Sodium Level 140 142 Potassium Level 4.0 3.4 Chloride Level 108 109 Carbon Dioxide Level 23.9 26.7 Anion Gap 8 6 Estimat Glomerular Filtration Rate 62 68 Total Creatine Kinase 176 110 104 Creatine Kinase MB 1.6 Troponin I LESS THAN 0.02 0.03 0.02 Lipase 119 Thyroid Stimulating Hormone 3rd Gen 4.580 Result Diagram: 03/10/1720 03/10/17719 Imaging Last Impressions Chest X-Ray 03/09/172003 Signed Impressions: Service Date/Time: Thursday, March 09, 2017 20:32 - CONCLUSION: No acute cardiopulmonary disease. Daya Kline MD Cervical Spine X-Ray 03/09/17 0000 Signed Impressions: Service Date/Time: Thursday, March 09, 2017 20:32 - CONCLUSION: Degenerative spondylosis. Daya Kline MD Caprini VTE Risk Assessment Caprini VTE Risk Assessment: Mod/High Risk (score >= 2) Caprini Risk Assessment Model Point Value = 1 Point Value = 2 Point Value = 3 Point Value = 5 Age 41-60 Minor surgery BMI > 25 kg/m2 Swollen legs Varicose veins or History of unexplained or recurrent spontaneous Oral contraceptives or hormone replacement Sepsis (< 1 month) Serious lung disease, including pneumonia (< 1 month) Abnormal pulmonary function Acute myocardial infarction Congestive heart failure (< 1 month) History of inflammatory bowel disease Medical patient at bed rest Age 61-74 Arthroscopic surgery Major open surgery (> 45 min) Laparoscopic surgery (> 45 min) Malignancy Confined to bed (> 72 hours) Immobilizing plaster cast Central venous access Age >= 75 History of VTE Family history of VTE Factor V Leiden Prothrombin [id number] Lupus anticoagulant Anticardiolipin antibodies Elevated serum homocysteine Heparin-induced thrombocytopenia Other congenital or acquired thrombophilia Stroke (< 1 month) Elective arthroplasty Hip, pelvis, or leg fracture Acute spinal cord injury (< 1 month) Prophylaxis Regimen Total Risk Factor Score Risk Level Prophylaxis Regimen 0-1 Low Early ambulation 2 Moderate Order ONE of the following: *Sequential Compression Device (SCD) *Heparin 5000 units SQ BID 3-4 Higher Order ONE of the following medications: *Heparin 5000 units SQ TID *Enoxaparin/Lovenox 40 mg SQ daily (WT < 150 kg, CrCl > 30 mL/min) *Enoxaparin/Lovenox 30 mg SQ daily (WT < 150 kg, CrCl > 10-29 mL/min) *Enoxaparin/Lovenox 30 mg SQ BID (WT < 150 kg, CrCl > 30 mL/min) AND/OR *Sequential Compression Device (SCD) 5 or more Highest Order ONE of the following medications: *Heparin 5000 units SQ TID (Preferred with Epidurals) *Enoxaparin/Lovenox 40 mg SQ daily (WT < 150 kg, CrCl > 30 mL/min) *Enoxaparin/Lovenox 30 mg SQ daily (WT < 150 kg, CrCl > 10-29 mL/min) *Enoxaparin/Lovenox 30 mg SQ BID (WT < 150 kg, CrCl > 30 mL/min) AND *Sequential Compression Device (SCD) Assessment and Plan Assessment and Plan Chest pain, atypical Patient with increased risk factors include age, hypertension, hyponatremia, diabetes, family history of heart disease Patient had been ruled out for acute coronary event with serial cardiac enzymes that are negative, serial EKGs without any changes Chemical stress test did indicate focal area 30% redistribution in the high inferior/basilar wall which may represent area of ischemia Consult cardiology for recommendations Patient continue on aspirin, nitroglycerin as needed Start 1/2 Nitropaste every 6 hours Start heparin IV Continue Norvasc Unable to use beta omari due to bradycardia Hypertension, hyperlipidemia Continue home medications Obtain lipid panel Continue statin Diabetes Accu-Cheks with sliding scale insulin Hypothyroidism TSH 4.58 Resume replacement therapy DVT prevention Sequential compression devices I, Froylan Sun, reviewed and agree with the findings presented. I attest that I had a [id number] encounter with the patient on the same day, and personally performed and documented my assessment and findings in the medical record. Gold Moran Mar 10, 2017 11:55 Froylan Sun MD Mar 10, 2017 16:15
[2017-03-10] MEDS ORDERED: REGADENOSON INJ 0.4 MG/5 ML SYR IV ONE (13:38)
--- NOTE | 2017-03-10 15:09 | RADRPT ---
EXAM DATE/TIME: 03/10/2017 13:31 [place] COMPARISON: MYOCARDIAL PERF PHARM SPECT, GATED W/EF, April 18, 2014, 9:20. INDICATIONS : Mid chest pain for one day. Angina. Myocardial infarction. DOSE: 26.8 mCi Tc99m Myoview at stress. 8.7 mCi Tc99m Myoview at rest. 0.4 mg Lexiscan STRESS SYMPTOMS: Arm pain. EJECTION FRACTION: 61% MEDICAL HISTORY : Cardiovascular disease. Hypertension. Diabetes mellitus type 2. SURGICAL HISTORY : Tubal ligation. Cholecystectomy. ENCOUNTER: Initial ACUITY: 1 day PAIN SCALE: 5/10 LOCATION: Midsternal chest TECHNIQUE: The patient underwent pharmacologic stress with infusion of prescribed dose. Continuous ECG tracing was monitored during stress. Gated SPECT imaging was performed after stress and conventional SPECT i maging was performed at rest. The examination was performed on a SPECT/CT scanner, both attenuation and non-corrected datasets were reviewed. FINDINGS: DISTRIBUTION: The maximum perfused segment at stress is in the anterolateral wall. PERFUSION STUDY: The pattern of perfusion at stress shows fixed diminished perfusion to the anteroseptal wall and low inferolateral wall extending into the apex. Focal area of 30% redistribution in the high inferior/bas ilar wall may represent an area of ischemia. GATED STUDY: There is intact wall motion and thickening without hypokinetic or dyskinetic segments. CONCLUSION: 1. Possible old infarcts in the midanterior wall and low inferolateral wall extending into the apex 2. Scintigraphic findings suggest a focal area of ischemia in the upper inferior/basilar segment. 3. Adequate wall motion throughout with an estimated ejection fraction of 61%. RISK CATEGORY: Intermediate (1-3% Annual Mortality Rate) Robert Mcgarry MD on March 10, 2017 at 14:58 Board Certified Radiologist. This report was verified electronically.
[2017-03-10] MEDS ORDERED: HEPARIN-D5W 25,000 U/250 ML 250 ML IV ONE (15:30)
[2017-03-10 15:50] VITALS: BP 162/90; PULSE 53; RESP 20; TEMP 97.6; O2SAT 97
[2017-03-10] MEDS: amLODIPine BESYLATE 5 MG TAB PO SCH (16:00)
[2017-03-10] MEDS ORDERED: HEPARIN SODIUM - IV 10,000 UNITS/10 ML VIAL IV ONE (16:00)
--- NOTE | 2017-03-10 16:11 | EKG ---
Date Performed: 03/10/2017 Time Performed: 08:15:18 PTAGE: 56 years EKG: SINUS BRADYCARDIA BORDERLINE ECG PREVIOUS TRACING : 03/10/2017 02.16 Since previous tracing, no significant change noted DOCTOR: Yao Cervantes Interpretating Date/Time 03/10/2017 16:10:28
--- NOTE | 2017-03-10 16:12 | EKG ---
Date Performed: 03/10/2017 Time Performed: 02:16:35 PTAGE: 56 years EKG: SINUS BRADYCARDIA NONSPECIFIC T-WAVE ABNORMALITY BORDERLINE ECG PREVIOUS TRACING : 03/09/2017 20.15 Since previous tracing, no significant change noted DOCTOR: Yao Cervantes Interpretating Date/Time 03/10/2017 16:10:49
--- NOTE | 2017-03-10 16:17 | TR ---
Date Performed: 03/10/2017 Time Performed: 13:58:26 DOCTOR: Yao Cervantes DRUG LIST: CLINICAL HISTORY: ANGINA REASON FOR TEST: Angina REASON FOR ENDING: OBSERVATION: CONCLUSION: Lexiscan stress test was performed under standard four minute protocol. Radionuclid e was injected one minute prior to ending the test. No electrocardiographic abormalities were present to suggest ischemia. Nuclear imaging and interpretation are pending. COMMENTS:
[2017-03-10] MEDS: NITROGLYCERIN 2% OINT 1 GM PACKET TOPICAL SCH ×2 (16:19→21:52)
[2017-03-10] MEDS: LEVOTHYROXINE SODIUM 50 MCG TAB PO SCH (18:00)
[2017-03-10] MEDS ORDERED: MIDAZOLAM HCL 2 MG/2 ML VIAL ONE ×2 (18:14→18:29)
[2017-03-10] MEDS ORDERED: HEPARIN-NS/PF INJ 1,000 ML ONE (18:14)
--- NOTE | 2017-03-10 19:02 | CATHPROC ---
[facility] HIS Report Study Information Study Number Admission Scheduled Start Study Start [id number] Mar 09 2017 10:58PM 03/10/2017 Mar 10 2017 6:12PM [facility] Cardiac Catheterization Admit Source Facility Department Transfer in from another acute care facility [facility] Physician and Clinical Staff Initial Ashly Garcia Cash Applications Clerkrubén Ken RN, Christina Harris RN Recorder Cally Rome RN Scrub Calderon Sandhu RCIS(BS) Procedures Performed Procedure Location (Site) Vessel Name Angiogram LV LV Ventricle Coronary Angiograms LCA Left Coronary Coronary Angiograms RCA Right Coronary L Heart Cath Equipment Time Code Enforcement Officer Description Size Mfg Part Number Used/Scraped TRANSDUCER, TRTabulaAVE [id number] 18:18 WALKER VERA * Used W/STOCKCOCK *[id number] 18:48 CARDIV[employer] MEDICAL VASCADE, FR5 CLOSURE SYSTEM FR 5 Used *[id number] *[id number] [id number] *[id number] [id number] *[id number] [id number] *[id number] 18:18 [employer] PACK, CCL CUSTOM * Used *[id number] 18:18 [employer] PACER PEN, SKIN DUAL W/ RULER * Used *[id number] 18:18 [employer] WIRE, 3MMJ .035 180CM 180CM Used *[id number] PROBE COVER, STERILE [id number] 18:18 [employer]ICAL * Used ULTRASOUND W/ GEL *[id number] 18:18 NAMIC MANIFOLD, 4 PORT * Used *[id number] 18:18 NAMIC TUBING, HIGH PRESSURE 48" 48" Used *[id number] 18:18 [employer]COMED OMNIPAQUE, 350 MG, 150ML 150ML [id number] Used [id number] 18:18 [employer] BLANKET,WARM AIR CCL * Used *[id number] 18:18 TERUMO MEDICAL SHEATH, FR5 TERUMO (10CM) FR 5 Used *[id number] History: Current Medications Medication Dosage/Unit Route Frequency Last Date/Time Taken ASA 325 mg Oral History: Allergies Allergy Reaction codeine 'BENDS OVER' WITH PAIN History: Risk Factors Family History of Hypertension Dyslipidemia Previous AK Previous Heart Failure Premature CAD Yes Yes Yes Yes No Prior Valve Prior PCI Prior CABG Surgery No No No Cerebrovascular Peripheral Artery Chronic Lung On Dialysis Diabetes Diabetes Therapy Disease Disease Disease No Yes No No Yes Oral History: Symptoms/Diagnosis Selection Items Chest pain History: CV Disease Selection Items Known CAD AK History: Stress Tests Stress or Imaging Studies Performed Yes Standard Exercise Stress Test No Stress Echo No Stress Test SPECT Stress Test SPECT Result Stress Test SPECT Ischemia Risk/Extent Yes Positive Intermediate Stress Test CMR No Cardiac CTA Coronary Calcium Score No No History: Arrhythmias Selection Items Sinus node bradycardia History: Other Disease Selection Items CAD HTN Stroke History: Other Current Smoker No Labs Hgb (g/dl) Hct (%) WBC (l/cumm) Platelets (thousands) 11.60-17.00 35.00-51.00 4.00-11.00 150.00-450.00 12.9 38.2 5.1 183 Glucose (mg/dl) BUN (mg/dl) Creatinine (mg/dl) BUN:Creatinine (1:x) 74.00-106.00 7.00-18.00 0.50-1.30 10.00-20.00 105 10 0.8 12.5 Na (meq/l) K (meq/l) 136.00-145.00 3.50-5.10 142 3.4 INR (PTT:PT) 0.90-1.10 1 Troponin I (ng/ml) Troponin T (ng/ml) CPK-MB (ng/ML) 0.02-0.05 0.40-2.10 0.50-3.60 0.02 0.03 Not Drawn Medication Medication Total Dose (Bolus/Oral) Medication Total Dosage/Unit 1% XYLOCAINE 20 mL FENTANYL 75 mcg VERSED 3 mg Medications (Bolus/Oral) Medication Time Given Dosage/Unit Administered By Reason VERSED 03/10/2017 6:28:29 PM 3 mg Bjian Ken RN 3 mg VERSED given in lab by Bijan Ken RN in Left Forearm via Peripheral IV. Ordered by Joseph Yoo. FENTANYL 03/10/2017 6:29:41 PM 75 mcg Bijan Ken RN 75 mcg FENTANYL given in lab by Bijan Ken RN in Left Forearm via Peripheral IV. Ordered by Ashly Yoo. 1% XYLOCAINE 03/10/2017 6:31:14 PM 20 mL Ashly Yoo 20 mL 1% XYLOCAINE given in lab by Ashly Yoo in Right Groin via Subcutaneous. Ordered by Ashly Lopes. Initial Case Assessment Cardiovascular HR Rhythm NIBP Chest Pain 48 regular 164/88 0 Edema Present Skin color Skin None Normal Warm Dry Circulatory - Right Pulses Dorsalis Pedis Posterior Tibial Femoral 3 3 3 Scale (0,1,2,3,4,d) Circulatory - Left Pulses Dorsalis Pedis Posterior Tibial Femoral 3 3 3 Scale (0,1,2,3,4,d) Circulatory - Lower Extremities Color Lower Right Color Lower Left Normal Normal Neurological State Oriented to time-place- Alert Moves all extremities person Respiration - General Respiration Rate SpO2 (%) (B/min) 16 100 Chronological Log Time Study Chronological Log 18:06:00 Patient arrived via Bed. 18:06:05 Patient Name, D.O.B, / Armband Verified By R.N. 18:06:15 Consent signed by the physician and the patient and verified by the [facility] staff. 18:06:20 Pre-op and post- op instructions given; patient acknowledges understanding of instructions. 18:06:45 Heparin gtt discontinued before pt arrived to cleaning laborer @ 1606 18:18:00 Verbal Stimulation=2 Physical Stimulation=2 Airway=2 Respiration=2 TOTAL=8. (0=absent, 1=li mited, 2=present) Vitals capture started with the following parameters, Patient=Adult, Interval=5 min, Initial Pr wjtwum=688 mmHg, 18:18:11 Deflation Rate=5 mmHg, Cuff placed on Left Arm 18:18:59 Presedation assessment performed by [facility] RN. 18:19:03 Patient has been NPO for More than 6Hrs. 18:19:04 Skin Breakdown-none per pt 18:19:14 Patient Warmer Placed on the Table. 18:19:15 Disposable Defibrillator Pads Placed On Patient. 18:19:16 Justine Prominences Protected 18:19:56 HR=48 bpm, HPYH=356/88 mmhg, SpO2=99.0 %, Resp=16 B/min, Pain=0, Jolie=10, Zuñiga=2 18:20:38 Pressure channel 1 zeroed. 18:20:45 A # 20 IV was noted in the Forearm (left). Grade = 0 0.9NS infusing at KVO 18:21:07 History and physical on the chart or being dictated. Assessment: Initial Case, HR=48 BPM, Rhythm=regular, ETHD=383/88 mmhg, Chest Pain=0, Edema=None , Color=Normal, Skin = Warm, Dry Right Pulses: Juan Carlos Ped=3, Post Tib=3, Femoral=3 Left Pulses: Juan Carlos Ped=3, Post Tib=3, Femoral=3 18:21:09 Lower Right Extremities: Color=Normal Lower Left Extremities: Color=Normal Neurological: State=Alert, Ox3, BAXTER Respiration: Resp=16 B/min, GaE1=151 % 18:21:47 Bilateral groins prepped with 2% chlorhexidine, and draped after a 3 minute waiting time. 18:21:54 MD arrived. 18:23:18 Reference ECG taken 18:23:58 HR=46 bpm, SBUQ=417/87 mmhg, SpO2=98.0 %, Resp=16 B/min, Pain=0, Jolie=10, Zuñiga=2 18:28:29 3 mg VERSED given in lab by Bijan Ken RN in Left Forearm via Peripheral IV. Ordered by Ashly Coker. 18:28:57 HR=46 bpm, VAOW=974/71 mmhg, SpO2=96.0 %, Resp=17 B/min, Pain=0, Zuñiga=2 18:29:41 75 mcg FENTANYL given in lab by Bijan Ken RN in Left Forearm via Peripheral IV. Ordered by Ashly Yoo. Time Out. Correct patient, correct procedure, correct physician, power injector loaded with con trast with surgical team 18:31:00 present. Time Out Concurred by MD and individual staff in procedure. 18:31:12 Case Start 18:31:14 20 mL 1% XYLOCAINE given in lab by Ashly Yoo in Right Groin via Subcutaneous. Ordered by Ashly Yoo. 18:32:38 Access site was Right Femoral Artery. 18:32:50 A SHEATH, FR5 TERUMO (10CM) FR 5 was advanced into the Fem Art (right) using the Modified S eldinger technique. A PIGTAIL ANG. INFINITI CATHETER FR 5 was advanced over a wire. OMNIPAQUE, 350 MG, 150ML 150ML was used 18:33:04 for injections. 18:33:54 HR=49 bpm, DCDA=330/71 mmhg, SpO2=92.0 %, Resp=12 B/min, Pain=0, Jolie=10, Zuñiga=2 Recorded Pressure: LV, HR=55, Condition=Condition 1 18:33:58 (Left Ventricle) LV 102/3/8 18:34:33 The LV was injected at 10 cc/sec for a total of 30. OMNIPAQUE, 350 MG, 150ML 150ML used. Recorded Pressure: LV, Ao, HR=53, Condition=Condition 1 18:35:18 (Left Ventricle) LV 100/2/14, (Aorta) Ao 101/56/75 After removing the current catheter a JL 4.0 INFINITI CATHETER FR 5 was advanced over a WIRE, 3 MMJ .035 180CM 18:35:52 180CM. 18:36:08 The LCA was injected and visualized at various angles. OMNIPAQUE, 350 MG, 150ML 150ML used . After removing the current catheter a AR MOD INFINITI CATHETER FR 5 was advanced over a WIRE, 3 MMJ .035 180CM 18:38:46 180CM. 18:38:53 HR=43 bpm, YPHW=476/72 mmhg, SpO2=96.0 %, Resp=14 B/min, Pain=0, Jolie=10, Zuñiga=2 18:39:40 The RCA was injected and visualized at various angles. OMNIPAQUE, 350 MG, 150ML 150ML used . 18:40:33 Catheter was removed 18:42:08 Case End 18:42:27 An injection in the Fem Art (right) was made through the SHEATH, FR5 TERUMO (10CM) FR 5. Recorded Pressure: Ao, HR=48, Condition=Condition 1 18:43:07 (Aorta) Ao 134/63/88 18:43:54 HR=47 bpm, KJAQ=141/75 mmhg, SpO2=97.0 %, Resp=17 B/min, Pain=0, Jolie=10, Zuñiga=2 18:44:50 No case complications noted. 18:46:06 Cine recording checked. 18:46:10 DOCU called. Spoke to BO Mcmillan 18:46:27 Bedside Report will be given. 18:46:31 Verbal Stimulation=2 Physical Stimulation=2 Airway=2 Respiration=2 TOTAL=8. (0=absent, 1=l imited, 2=present) 18:47:33 VASCADE, FR5 CLOSURE SYSTEM FR 5 placement in the Fem Art (right) 18:48:31 Sterile dressing applied to site 18:48:55 HR=47 bpm, BRUZ=826/72 mmhg, Resp=26 B/min, Pain=0, Jolie=10, Zuñiga=2 18:54:33 HR=48 bpm, UZUC=913/72 mmhg, SpO2=79.0 %, Resp=18 B/min, Pain=0, Jolie=10, Zuñiga=2 18:58:29 Vitals capture stopped. 19:00:12 Defibrillator and ground pads removed. Skin intact. 19:00:14 A Left Heart Cath was performed. 19:00:18 [facility] - Contrast Media Used In Study Contrast Total Opened (mL) Total Used (mL) Total Wasted (mL) Omnipaque 200 80 120 End Study - Maximum Contrast Load Max Contrast Load (mL) 566.2 End Study - Radiation Exposure Fluoro Time (minutes) 1.7 End Study - Patient Disposition Complications Transferred To Interventional Outcome No [facility] Holding successful
--- NOTE | 2017-03-10 19:02 | CATHPROC ---
[employer] HIS Report Study Information Study Number Admission Scheduled Start Study Start [id number] Mar 09 2017 10:58PM 03/10/2017 Mar 10 2017 6:12PM [place] [facility] Cardiac Catheterization Admit Source Facility Department Transfer in from another acute care facility [facility] - Hydroelectric Plant Technician Physician and Clinical Staff Initial Ashly Garcia Psychologistsrubén Ken RN, Christina Harris RN Recorder Cally Rome RN Scrub Calderon Sandhu RCIS(BS) Procedures Performed Procedure Location (Site) Vessel Name Angiogram LV LV Ventricle Coronary Angiograms LCA Left Coronary Coronary Angiograms RCA Right Coronary L Heart Cath Equipment Time Gis Analyst Developer Description Size Mfg Part Number Used/Scraped TRANSDUCER, [id number] [id number] 18:18 WALKER VERA * Used W/STOCKCOCK *[id number] 18:48 CARDIVA MEDICAL VASCADE, FR5 CLOSURE SYSTEM FR 5 Used *[id number] [id number] *[id number] [id number] *[id number] [id number] *[id number] [id number] *[id number] 18:18 MEDLINE INDUSTRIES PACK, CCL CUSTOM * Used *[id number] 18:18 TransEnterix PACER PEN, SKIN DUAL W/ RULER * Used *[id number] 18:18 [employer]ech WIRE, 3MMJ .035 180CM 180CM Used *[id number] PROBE COVER, STERILE [id number] 18:18 [employer] MEDICAL * Used ULTRASOUND W/ GEL *[id number] 18:18 NAMIC MANIFOLD, 4 PORT * Used *[id number] 18:18 NAMIC TUBING, HIGH PRESSURE 48" 48" Used *[id number] 18:18 NYCOMED OMNIPAQUE, 350 MG, 150ML 150ML [id number] Used [id number] 18:18 WYATT MEDICAL BLANKET,WARM AIR CCL * Used *[id number] 18:18 TERUMO MEDICAL SHEATH, FR5 TERUMO (10CM) FR 5 Used *[id number] History: Current Medications Medication Dosage/Unit Route Frequency Last Date/Time Taken ASA 325 mg Oral History: Allergies Allergy Reaction codeine 'BENDS OVER' WITH PAIN History: Risk Factors Family History of Hypertension Dyslipidemia Previous VA Previous Heart Failure Premature CAD Yes Yes Yes Yes No Prior Valve Prior PCI Prior CABG Surgery No No No Cerebrovascular Peripheral Artery Chronic Lung On Dialysis Diabetes Diabetes Therapy Disease Disease Disease No Yes No No Yes Oral History: Symptoms/Diagnosis Selection Items Chest pain History: CV Disease Selection Items Known CAD VA History: Stress Tests Stress or Imaging Studies Performed Yes Standard Exercise Stress Test No Stress Echo No Stress Test SPECT Stress Test SPECT Result Stress Test SPECT Ischemia Risk/Extent Yes Positive Intermediate Stress Test CMR No Cardiac CTA Coronary Calcium Score No No History: Arrhythmias Selection Items Sinus node bradycardia History: Other Disease Selection Items CAD HTN Stroke History: Other Current Smoker No Labs Hgb (g/dl) Hct (%) WBC (l/cumm) Platelets (thousands) 11.60-17.00 35.00-51.00 4.00-11.00 150.00-450.00 12.9 38.2 5.1 183 Glucose (mg/dl) BUN (mg/dl) Creatinine (mg/dl) BUN:Creatinine (1:x) 74.00-106.00 7.00-18.00 0.50-1.30 10.00-20.00 105 10 0.8 12.5 Na (meq/l) K (meq/l) 136.00-145.00 3.50-5.10 142 3.4 INR (PTT:PT) 0.90-1.10 1 Troponin I (ng/ml) Troponin T (ng/ml) CPK-MB (ng/ML) 0.02-0.05 0.40-2.10 0.50-3.60 0.02 0.03 Not Drawn Medication Medication Total Dose (Bolus/Oral) Medication Total Dosage/Unit 1% XYLOCAINE 20 mL FENTANYL 75 mcg VERSED 3 mg Medications (Bolus/Oral) Medication Time Given Dosage/Unit Administered By Reason VERSED 03/10/2017 6:28:29 PM 3 mg Bijan Ken RN 3 mg VERSED given in lab by Bijan Ken RN in Left Forearm via Peripheral IV. Ordered by Joseph Yoo. FENTANYL 03/10/2017 6:29:41 PM 75 mcg Bijan Ken RN 75 mcg FENTANYL given in lab by Bijan Ken RN in Left Forearm via Peripheral IV. Ordered by Ashly Yoo. 1% XYLOCAINE 03/10/2017 6:31:14 PM 20 mL Ashly Yoo 20 mL 1% XYLOCAINE given in lab by Ashly Yoo in Right Groin via Subcutaneous. Ordered by Ashly Lopes. Initial Case Assessment Cardiovascular HR Rhythm NIBP Chest Pain 48 regular 164/88 0 Edema Present Skin color Skin None Normal Warm Dry Circulatory - Right Pulses Dorsalis Pedis Posterior Tibial Femoral 3 3 3 Scale (0,1,2,3,4,d) Circulatory - Left Pulses Dorsalis Pedis Posterior Tibial Femoral 3 3 3 Scale (0,1,2,3,4,d) Circulatory - Lower Extremities Color Lower Right Color Lower Left Normal Normal Neurological State Oriented to time-place- Alert Moves all extremities person Respiration - General Respiration Rate SpO2 (%) (B/min) 16 100 Chronological Log Time Study Chronological Log 18:06:00 Patient arrived via Bed. 18:06:05 Patient Name, D.O.B, / Armband Verified By R.N. 18:06:15 Consent signed by the physician and the patient and verified by the Hydroelectric Plant Technician staff. 18:06:20 Pre-op and post- op instructions given; patient acknowledges understanding of instructions. 18:06:45 Heparin gtt discontinued before pt arrived to medical laboratory specialist @ 1606 18:18:00 Verbal Stimulation=2 Physical Stimulation=2 Airway=2 Respiration=2 TOTAL=8. (0=absent, 1=li mited, 2=present) Vitals capture started with the following parameters, Patient=Adult, Interval=5 min, Initial Pr cpobsw=862 mmHg, 18:18:11 Deflation Rate=5 mmHg, Cuff placed on Left Arm 18:18:59 Presedation assessment performed by Hydroelectric Plant Technician RN. 18:19:03 Patient has been NPO for More than 6Hrs. 18:19:04 Skin Breakdown-none per pt 18:19:14 Patient Warmer Placed on the Table. 18:19:15 Disposable Defibrillator Pads Placed On Patient. 18:19:16 Justine Prominences Protected 18:19:56 HR=48 bpm, AJLE=433/88 mmhg, SpO2=99.0 %, Resp=16 B/min, Pain=0, Jolie=10, Zuñiga=2 18:20:38 Pressure channel 1 zeroed. 18:20:45 A # 20 IV was noted in the Forearm (left). Grade = 0 0.9NS infusing at KVO 18:21:07 History and physical on the chart or being dictated. Assessment: Initial Case, HR=48 BPM, Rhythm=regular, BBME=984/88 mmhg, Chest Pain=0, Edema=None , Color=Normal, Skin = Warm, Dry Right Pulses: Juan Carlos Ped=3, Post Tib=3, Femoral=3 Left Pulses: Juan Carlos Ped=3, Post Tib=3, Femoral=3 18:21:09 Lower Right Extremities: Color=Normal Lower Left Extremities: Color=Normal Neurological: State=Alert, Ox3, BAXTER Respiration: Resp=16 B/min, LvG8=013 % 18:21:47 Bilateral groins prepped with 2% chlorhexidine, and draped after a 3 minute waiting time. 18:21:54 MD arrived. 18:23:18 Reference ECG taken 18:23:58 HR=46 bpm, UVRN=596/87 mmhg, SpO2=98.0 %, Resp=16 B/min, Pain=0, Jolie=10, Zuñiga=2 18:28:29 3 mg VERSED given in lab by Bijan Ken RN in Left Forearm via Peripheral IV. Ordered by Ashly Coker. 18:28:57 HR=46 bpm, WWBT=299/71 mmhg, SpO2=96.0 %, Resp=17 B/min, Pain=0, Zuñiga=2 18:29:41 75 mcg FENTANYL given in lab by Bijan Ken RN in Left Forearm via Peripheral IV. Ordered by Ashly Yoo. Time Out. Correct patient, correct procedure, correct physician, power injector loaded with con trast with surgical team 18:31:00 present. Time Out Concurred by MD and individual staff in procedure. 18:31:12 Case Start 18:31:14 20 mL 1% XYLOCAINE given in lab by Ashly Yoo in Right Groin via Subcutaneous. Ordered by Ashly Yoo. 18:32:38 Access site was Right Femoral Artery. 18:32:50 A SHEATH, FR5 TERUMO (10CM) FR 5 was advanced into the Fem Art (right) using the Modified S eldinger technique. A PIGTAIL ANG. INFINITI CATHETER FR 5 was advanced over a wire. OMNIPAQUE, 350 MG, 150ML 150ML was used 18:33:04 for injections. 18:33:54 HR=49 bpm, XBZB=614/71 mmhg, SpO2=92.0 %, Resp=12 B/min, Pain=0, Jolie=10, Zuñiga=2 Recorded Pressure: LV, HR=55, Condition=Condition 1 18:33:58 (Left Ventricle) LV 102/3/8 18:34:33 The LV was injected at 10 cc/sec for a total of 30. OMNIPAQUE, 350 MG, 150ML 150ML used. Recorded Pressure: LV, Ao, HR=53, Condition=Condition 1 18:35:18 (Left Ventricle) LV 100/2/14, (Aorta) Ao 101/56/75 After removing the current catheter a JL 4.0 INFINITI CATHETER FR 5 was advanced over a WIRE, 3 MMJ .035 180CM 18:35:52 180CM. 18:36:08 The LCA was injected and visualized at various angles. OMNIPAQUE, 350 MG, 150ML 150ML used . After removing the current catheter a AR MOD INFINITI CATHETER FR 5 was advanced over a WIRE, 3 MMJ .035 180CM 18:38:46 180CM. 18:38:53 HR=43 bpm, PIYG=294/72 mmhg, SpO2=96.0 %, Resp=14 B/min, Pain=0, Jolie=10, Zuñiga=2 18:39:40 The RCA was injected and visualized at various angles. OMNIPAQUE, 350 MG, 150ML 150ML used . 18:40:33 Catheter was removed 18:42:08 Case End 18:42:27 An injection in the Fem Art (right) was made through the SHEATH, FR5 TERUMO (10CM) FR 5. Recorded Pressure: Ao, HR=48, Condition=Condition 1 18:43:07 (Aorta) Ao 134/63/88 18:43:54 HR=47 bpm, OWOZ=385/75 mmhg, SpO2=97.0 %, Resp=17 B/min, Pain=0, Jolie=10, Zuñiga=2 18:44:50 No case complications noted. 18:46:06 Cine recording checked. 18:46:10 DOCU called. Spoke to BO Mcmillan 18:46:27 Bedside Report will be given. 18:46:31 Verbal Stimulation=2 Physical Stimulation=2 Airway=2 Respiration=2 TOTAL=8. (0=absent, 1=l imited, 2=present) 18:47:33 VASCADE, FR5 CLOSURE SYSTEM FR 5 placement in the Fem Art (right) 18:48:31 Sterile dressing applied to site 18:48:55 HR=47 bpm, PCWK=417/72 mmhg, Resp=26 B/min, Pain=0, Jolie=10, Zuñiga=2 18:54:33 HR=48 bpm, BCWC=484/72 mmhg, SpO2=79.0 %, Resp=18 B/min, Pain=0, Jolie=10, Zuñiga=2 18:58:29 Vitals capture stopped. 19:00:12 Defibrillator and ground pads removed. Skin intact. 19:00:14 A Left Heart Cath was performed. 19:00:18 [facility] - Contrast Media Used In Study Contrast Total Opened (mL) Total Used (mL) Total Wasted (mL) Omnipaque 200 80 120 End Study - Maximum Contrast Load Max Contrast Load (mL) 566.2 End Study - Radiation Exposure Fluoro Time (minutes) 1.7 End Study - Patient Disposition Complications Transferred To Interventional Outcome No Hydroelectric Plant Technician Holding successful
--- NOTE | 2017-03-10 19:02 | CATHPROC ---
[employer] HIS Report Study Information Study Number Admission Scheduled Start Study Start [id number] Mar 09 2017 10:58PM 03/10/2017 Mar 10 2017 6:12PM [place] [facility] Cardiac Catheterization Admit Source Facility Department Transfer in from another acute care facility [facility] - Heel Seat Sander Physician and Clinical Staff Initial Ashly Garcia Director Of Parks And Recreationrubén Ken RN, Christina Harris RN Recorder Cally Rome RN Scrub Calderon Sandhu RCIS(BS) Procedures Performed Procedure Location (Site) Vessel Name Angiogram LV LV Ventricle Coronary Angiograms LCA Left Coronary Coronary Angiograms RCA Right Coronary L Heart Cath Equipment Time Rock Wool Insulator Description Size Mfg Part Number Used/Scraped TRANSDUCER, TRCorelyticsAVE [id number] 18:18 WALKER VERA * Used W/STOCKCOCK *[id number] 18:48 CARDIVA MEDICAL VASCADE, FR5 CLOSURE SYSTEM FR 5 Used *[id number] [id number] *[id number] 534-548T *[id number] 534-520T *[id number] [id number] *[id number] 18:18 MEDLINE INDUST[employer] PACK, CCL CUSTOM * Used *[id number] 18:18 [employer] PACER PEN, SKIN DUAL W/ RULER * Used *[id number] 18:18 [employer] WIRE, 3MMJ .035 180CM 180CM Used *[id number] PROBE COVER, STERILE [id number] 18:18 [employer] MEDICAL * Used ULTRASOUND W/ GEL *[id number] 18:18 NAMIC MANIFOLD, 4 PORT * Used *[id number] 18:18 NAMIC TUBING, HIGH PRESSURE 48" 48" Used *[id number] 18:18 NYCOMED OMNIPAQUE, 350 MG, 150ML 150ML [id number] Used [id number] 18:18 WYATT MEDICAL BLANKET,WARM AIR CCL * Used *[id number] 18:18 TERUMO MEDICAL SHEATH, FR5 TERUMO (10CM) FR 5 Used *[id number] History: Current Medications Medication Dosage/Unit Route Frequency Last Date/Time Taken ASA 325 mg Oral History: Allergies Allergy Reaction codeine 'BENDS OVER' WITH PAIN History: Risk Factors Family History of Hypertension Dyslipidemia Previous [place] Previous Heart Failure Premature CAD Yes Yes Yes Yes No Prior Valve Prior PCI Prior CABG Surgery No No No Cerebrovascular Peripheral Artery Chronic Lung On Dialysis Diabetes Diabetes Therapy Disease Disease Disease No Yes No No Yes Oral History: Symptoms/Diagnosis Selection Items Chest pain History: CV Disease Selection Items Known CAD [place] History: Stress Tests Stress or Imaging Studies Performed Yes Standard Exercise Stress Test No Stress Echo No Stress Test SPECT Stress Test SPECT Result Stress Test SPECT Ischemia Risk/Extent Yes Positive Intermediate Stress Test CMR No Cardiac CTA Coronary Calcium Score No No History: Arrhythmias Selection Items Sinus node bradycardia History: Other Disease Selection Items CAD HTN Stroke History: Other Current Smoker No Labs Hgb (g/dl) Hct (%) WBC (l/cumm) Platelets (thousands) 11.60-17.00 35.00-51.00 4.00-11.00 150.00-450.00 12.9 38.2 5.1 183 Glucose (mg/dl) BUN (mg/dl) Creatinine (mg/dl) BUN:Creatinine (1:x) 74.00-106.00 7.00-18.00 0.50-1.30 10.00-20.00 105 10 0.8 12.5 Na (meq/l) K (meq/l) 136.00-145.00 3.50-5.10 142 3.4 INR (PTT:PT) 0.90-1.10 1 Troponin I (ng/ml) Troponin T (ng/ml) CPK-MB (ng/ML) 0.02-0.05 0.40-2.10 0.50-3.60 0.02 0.03 Not Drawn Medication Medication Total Dose (Bolus/Oral) Medication Total Dosage/Unit 1% XYLOCAINE 20 mL FENTANYL 75 mcg VERSED 3 mg Medications (Bolus/Oral) Medication Time Given Dosage/Unit Administered By Reason VERSED 03/10/2017 6:28:29 PM 3 mg Bijan Ken RN 3 mg VERSED given in lab by Bijan Ken RN in Left Forearm via Peripheral IV. Ordered by Joseph Yoo. FENTANYL 03/10/2017 6:29:41 PM 75 mcg Bijan Ken RN 75 mcg FENTANYL given in lab by Bijan Ken RN in Left Forearm via Peripheral IV. Ordered by Ashly Yoo. 1% XYLOCAINE 03/10/2017 6:31:14 PM 20 mL Ashly Yoo 20 mL 1% XYLOCAINE given in lab by Ashly Yoo in Right Groin via Subcutaneous. Ordered by Ashly Lopes. Initial Case Assessment Cardiovascular HR Rhythm NIBP Chest Pain 48 regular 164/88 0 Edema Present Skin color Skin None Normal Warm Dry Circulatory - Right Pulses Dorsalis Pedis Posterior Tibial Femoral 3 3 3 Scale (0,1,2,3,4,d) Circulatory - Left Pulses Dorsalis Pedis Posterior Tibial Femoral 3 3 3 Scale (0,1,2,3,4,d) Circulatory - Lower Extremities Color Lower Right Color Lower Left Normal Normal Neurological State Oriented to time-place- Alert Moves all extremities person Respiration - General Respiration Rate SpO2 (%) (B/min) 16 100 Chronological Log Time Study Chronological Log 18:06:00 Patient arrived via Bed. 18:06:05 Patient Name, D.O.B, / Armband Verified By R.N. 18:06:15 Consent signed by the physician and the patient and verified by the Heel Seat Sander staff. 18:06:20 Pre-op and post- op instructions given; patient acknowledges understanding of instructions. 18:06:45 Heparin gtt discontinued before pt arrived to offset label rewinder @ 1606 18:18:00 Verbal Stimulation=2 Physical Stimulation=2 Airway=2 Respiration=2 TOTAL=8. (0=absent, 1=li mited, 2=present) Vitals capture started with the following parameters, Patient=Adult, Interval=5 min, Initial Pr rwshkw=578 mmHg, 18:18:11 Deflation Rate=5 mmHg, Cuff placed on Left Arm 18:18:59 Presedation assessment performed by Heel Seat Sander RN. 18:19:03 Patient has been NPO for More than 6Hrs. 18:19:04 Skin Breakdown-none per pt 18:19:14 Patient Warmer Placed on the Table. 18:19:15 Disposable Defibrillator Pads Placed On Patient. 18:19:16 Justine Prominences Protected 18:19:56 HR=48 bpm, FLLD=104/88 mmhg, SpO2=99.0 %, Resp=16 B/min, Pain=0, Jolie=10, Zuñiga=2 18:20:38 Pressure channel 1 zeroed. 18:20:45 A # 20 IV was noted in the Forearm (left). Grade = 0 0.9NS infusing at KVO 18:21:07 History and physical on the chart or being dictated. Assessment: Initial Case, HR=48 BPM, Rhythm=regular, WJWC=707/88 mmhg, Chest Pain=0, Edema=None , Color=Normal, Skin = Warm, Dry Right Pulses: Juan Carlos Ped=3, Post Tib=3, Femoral=3 Left Pulses: Juan Carlos Ped=3, Post Tib=3, Femoral=3 18:21:09 Lower Right Extremities: Color=Normal Lower Left Extremities: Color=Normal Neurological: State=Alert, Ox3, BAXTER Respiration: Resp=16 B/min, WnK0=285 % 18:21:47 Bilateral groins prepped with 2% chlorhexidine, and draped after a 3 minute waiting time. 18:21:54 MD arrived. 18:23:18 Reference ECG taken 18:23:58 HR=46 bpm, AKHE=554/87 mmhg, SpO2=98.0 %, Resp=16 B/min, Pain=0, Jolie=10, Zuñiga=2 18:28:29 3 mg VERSED given in lab by Bijan Ken RN in Left Forearm via Peripheral IV. Ordered by Ashly Coker. 18:28:57 HR=46 bpm, RKFF=999/71 mmhg, SpO2=96.0 %, Resp=17 B/min, Pain=0, Zuñiga=2 18:29:41 75 mcg FENTANYL given in lab by Bijan Ken RN in Left Forearm via Peripheral IV. Ordered by Ashly Yoo. Time Out. Correct patient, correct procedure, correct physician, power injector loaded with con trast with surgical team 18:31:00 present. Time Out Concurred by MD and individual staff in procedure. 18:31:12 Case Start 18:31:14 20 mL 1% XYLOCAINE given in lab by Ashly Yoo in Right Groin via Subcutaneous. Ordered by Ashly Yoo. 18:32:38 Access site was Right Femoral Artery. 18:32:50 A SHEATH, FR5 TERUMO (10CM) FR 5 was advanced into the Fem Art (right) using the Modified S eldinger technique. A PIGTAIL ANG. INFINITI CATHETER FR 5 was advanced over a wire. OMNIPAQUE, 350 MG, 150ML 150ML was used 18:33:04 for injections. 18:33:54 HR=49 bpm, BESQ=909/71 mmhg, SpO2=92.0 %, Resp=12 B/min, Pain=0, Jolie=10, Zuñiga=2 Recorded Pressure: LV, HR=55, Condition=Condition 1 18:33:58 (Left Ventricle) LV 102/3/8 18:34:33 The LV was injected at 10 cc/sec for a total of 30. OMNIPAQUE, 350 MG, 150ML 150ML used. Recorded Pressure: LV, Ao, HR=53, Condition=Condition 1 18:35:18 (Left Ventricle) LV 100/2/14, (Aorta) Ao 101/56/75 After removing the current catheter a JL 4.0 INFINITI CATHETER FR 5 was advanced over a WIRE, 3 MMJ .035 180CM 18:35:52 180CM. 18:36:08 The LCA was injected and visualized at various angles. OMNIPAQUE, 350 MG, 150ML 150ML used . After removing the current catheter a AR MOD INFINITI CATHETER FR 5 was advanced over a WIRE, 3 MMJ .035 180CM 18:38:46 180CM. 18:38:53 HR=43 bpm, BQTN=321/72 mmhg, SpO2=96.0 %, Resp=14 B/min, Pain=0, Jolie=10, Zuñiga=2 18:39:40 The RCA was injected and visualized at various angles. OMNIPAQUE, 350 MG, 150ML 150ML used . 18:40:33 Catheter was removed 18:42:08 Case End 18:42:27 An injection in the Fem Art (right) was made through the SHEATH, FR5 TERUMO (10CM) FR 5. Recorded Pressure: Ao, HR=48, Condition=Condition 1 18:43:07 (Aorta) Ao 134/63/88 18:43:54 HR=47 bpm, FILC=284/75 mmhg, SpO2=97.0 %, Resp=17 B/min, Pain=0, Jolie=10, Zuñiga=2 18:44:50 No case complications noted. 18:46:06 Cine recording checked. 18:46:10 DOCU called. Spoke to BO Mcmillan 18:46:27 Bedside Report will be given. 18:46:31 Verbal Stimulation=2 Physical Stimulation=2 Airway=2 Respiration=2 TOTAL=8. (0=absent, 1=l imited, 2=present) 18:47:33 VASCADE, FR5 CLOSURE SYSTEM FR 5 placement in the Fem Art (right) 18:48:31 Sterile dressing applied to site 18:48:55 HR=47 bpm, BHNY=413/72 mmhg, Resp=26 B/min, Pain=0, Jolie=10, Zuñiga=2 18:54:33 HR=48 bpm, NZLF=459/72 mmhg, SpO2=79.0 %, Resp=18 B/min, Pain=0, Jolie=10, Zuñiga=2 18:58:29 Vitals capture stopped. 19:00:12 Defibrillator and ground pads removed. Skin intact. 19:00:14 A Left Heart Cath was performed. 19:00:18 [facility] - Contrast Media Used In Study Contrast Total Opened (mL) Total Used (mL) Total Wasted (mL) Omnipaque 200 80 120 End Study - Maximum Contrast Load Max Contrast Load (mL) 566.2 End Study - Radiation Exposure Fluoro Time (minutes) 1.7 End Study - Patient Disposition Complications Transferred To Interventional Outcome No Heel Seat Sander Holding successful
[2017-03-10] MEDS ORDERED: SODIUM CHLOR 0.9% 1000 ML INJ 500 ML IV SCH (19:30)
[2017-03-10] MEDS ORDERED: PRAVASTATIN SOD 20 MG TAB PO SCH (21:00)
[2017-03-10 21:15] VITALS: BP 106/65; PULSE 50; RESP 20; TEMP 98.5; O2SAT 95
[2017-03-10] MEDS ORDERED: HEPARIN SODIUM - IV 10,000 UNITS/10 ML VIAL IV PRN ×2 (21:30)
--- NOTE | 2017-03-10 22:17 | MB ---
cc: BENJA HAIRSTON DATE OF CONSULTATION 03/10/2017 HISTORY OF THE PRESENT ILLNESS Ms. Hartley is a 56-year white female with history of coronary artery disease, hypertension, dyslipidemia and diabetes mellitus. Yesterday morning she woke up with right neck pain and subsequently developed moderate discomfort at the left sternal border. She also had nausea. She has had previous myocardial infarction and had cardiac catheterization which showed coronary disease but she did not require any coronary intervention. She ran out of all her medications four days ago. PAST MEDICAL HISTORY 1. Positive for coronary disease as above. 2. Hypertension. 3. Dyslipidemia. 4. Diabetes mellitus. 5. Tubal ligation. 6. Cholecystectomy. MEDICATIONS 1. Synthroid. 2. Lisinopril. 3. Glipizide. 4. Hydrochlorothiazide. 5. Amlodipine. 6. Pravastatin. 7. Ranitidine. 8. Aspirin. ALLERGIES CODEINE. SOCIAL HISTORY The patient does not smoke. She does not drink alcohol. FAMILY HISTORY Positive for heart disease in her the mother and stroke in her father. REVIEW OF SYSTEMS Otherwise negative. PHYSICAL EXAMINATION VITAL SIGNS: Blood pressure 162/90, pulse 53 and regular. HEENT: Negative. 2+ carotid upstrokes. No bruits. LUNGS: Clear. HEART: Regular with no murmur, gallop or rub. ABDOMEN: Soft. No bruits. EXTREMITIES: Without edema. 2+ distal pulses. NEUROLOGIC: Examination is grossly nonfocal. EKG was reviewed and showed sinus bradycardia and no acute changes. Nuclear myocardial perfusion study revealed inferobasal ischemia, mid anterior and lower inferolateral wall infarcts and ejection fraction of 61%. LABORATORY DATA Hemoglobin 12.9. Potassium 3.4, creatinine 0.9, AST 17, ALT 28. CK 110. Troponin 0.03 and 0.02. TSH 4.6 DIAGNOSES 1. Unstable angina. 2. Coronary artery disease with history of myocardial infarction. 3. Diabetes mellitus. 4. Hypertension. 5. Dyslipidemia. 6. History of cerebrovascular accident. 7. Noncompliance with medications. DISPOSITION Ms. Gordillo will undergo coronary catheterization and coronary intervention is necessary. She understands risks and benefits and wishes to proceed. We will restart her medications. We will continue aggressive modification of her cardiac risk factors. Otakar Quadrat, MD OQ/KK /6:04 PM /9:53 PM
[2017-03-11] VITALS: BP 138/78; PULSE 51; RESP 20; TEMP 98.5; O2SAT 97
[2017-03-11 04:00] VITALS: BP 147/79; PULSE 50; RESP 20; TEMP 98.6; O2SAT 96
[2017-03-11] MEDS: LEVOTHYROXINE SODIUM 50 MCG TAB PO SCH (05:19)
[2017-03-11] MEDS: NITROGLYCERIN 2% OINT 1 GM PACKET TOPICAL SCH ×2 (05:21→13:00)
[2017-03-11 07:20] VITALS: BP 131/76; PULSE 48; RESP 17; TEMP 98.6; O2SAT 95
[2017-03-11 07:52] LABS: CHOLESTEROL/ HDL RATIO 2.99 RATIO; HDL CHOLESTEROL 45.7 MG/DL (40.0-60.0)
[2017-03-11] MEDS: SODIUM CHLORIDE 0.9% FLUSH 10 ML FLUSH IV FLUSH SCH (08:09)
[2017-03-11] MEDS: amLODIPine BESYLATE 5 MG TAB PO SCH (08:10)
[2017-03-11] MEDS ORDERED: ASPIRIN 325 MG TAB PO SCH (09:00)
--- NOTE | 2017-03-11 10:21 | PD.CARD.PN ---
Subjective Subjective Remarks No CP or SOB, feels better Objective Medications Current Medications Medications (Trade) Dose Ordered Sig/Lorin Route Start Time Stop Time Status Last Admin (NS Flush) 2 ml UNSCH PRN IV FLUSH 03/09/17 23:00 (NS Flush) 2 ml BID IV FLUSH 03/10/17 09:00 03/11/17 08:09 (Aspirin) 325 mg DAILY PO 03/11/17 09:00 03/11/17 08:10 (Nitrostat Sl) 0.4 mg Q5M PRN SL 03/09/17 23:15 (Norvasc) 10 mg DAILY PO 03/10/17 16:00 03/11/17 08:10 (Synthroid) 50 mcg DAILY@0600 PO 03/10/17 18:00 03/11/17 05:19 (Pravachol) 20 mg HS PO 03/10/17 21:00 03/10/17 21:50 (Heparin Inj) 5,000 units UNSCH PRN IV 03/10/17 21:30 (Heparin Inj) 2,500 units UNSCH PRN IV 03/10/17 21:30 Heparin Sodium/ Dextrose 250 ml @ 10 mls/hr TITRATE ONCE IV 03/10/17 15:30 03/11/17 16:29 03/10/17 16:22 (Nitroglycerin 2% Oint) 0.5 inch Q6HR TOPICAL 03/10/17 18:00 03/10/17 16:19 Vital Signs / I&O Vital Signs Date Time Temp Pulse Resp B/P (MAP) Pulse Ox O2 Delivery O2 Flow Rate FiO2 03/11/17 07:20 98.6 48 17 131/76 (94) 95 03/11/17 04:00 98.6 50 20 147/79 (101) 96 03/11/17 00:00 98.5 51 20 138/78 (98) 97 03/10/17 21:15 98.5 50 20 106/65 (79) 95 03/10/17 20:21 96 Room Air 03/10/17 15:50 97.6 53 20 162/90 (114) 97 03/10/17 11:30 97.4 46 20 177/86 (116) 97 I/O 03/10/17 03/10/17 03/10/17 03/11/17 03/11/1726/17 07:00 15:00 23:00 07:00 15:00 23:00 Intake Total 0 ml 360 ml Balance 0 ml 360 ml Intake Oral 0 ml 360 ml # Voids 1 2 # Bowel Movements 0 0 0 Physical Exam GENERAL: In NAD SKIN: Warm and dry. HEAD: Normocephalic. EYES: No scleral icterus. No injection or drainage. NECK: Supple, trachea midline. No JVD or lymphadenopathy. CARDIOVASCULAR: Regular rate and rhythm without murmurs, gallops, or rubs. RESPIRATORY: Breath sounds equal bilaterally. No accessory muscle use. GASTROINTESTINAL: Abdomen soft, non-tender, nondistended. MUSCULOSKELETAL: No cyanosis, or edema. Groin stable Laboratory Laboratory Tests Test 03/11/17 06:00 Triglycerides Level 136 MG/DL Cholesterol Level 137 MG/DL LDL Cholesterol 64 MG/DL HDL Cholesterol 45.7 MG/DL Cholesterol/HDL Ratio 2.99 RATIO Assessment and Plan Problem List: (1) Unstable angina ICD Codes: I20.0 - Unstable angina (2) CAD (coronary artery disease) ICD Codes: I25.10 - CAD (coronary artery disease) Status: Acute (3) Diabetes ICD Codes: E11.9 - Diabetes Status: Chronic (4) Hyperlipidemia ICD Codes: E78.5 - Hyperlipidemia Status: Acute (5) Hypertension ICD Codes: I10 - Hypertension Status: Chronic Assessment and Plan Cath with moderate nonobstructive CAD. LV fx preserved. Continue current program with aggressive risk factor modification. Restart all meds. DC home. She was recommended to find a PCP soon. Ashly Yoo MD Mar 11, 2017 10:20
--- NOTE | 2017-03-11 11:05 | MA ---
cc: BENJA HAIRSTON DATE 03/11/2017 INDICATION Unstable angina, coronary artery disease, intermediate probability nuclear marker perfusion study. PROCEDURE PERFORMED 1. Retrograde left heart catheterization with left ventriculography and selective coronary angiography. 2. Moderate sedation ACCESS SITE Right femoral artery EQUIPMENT USED 5-[place] pigtail catheter, 5-[place] JL-4 and AR modified coronary catheters. MEDICATIONS Versed IV, Fentanyl IV CONTRAST Omnipaque 80 cc COMPLICATIONS None BLOOD LOSS Less than 10 cc METHOD OF HEMOSTASIS Vascade closure RESULTS HEMODYNAMICS Heart rate 45 beats per minute, left end diastolic pressure 5 mmHg, left ventricle 100/5, aorta 100/60/85. Left ventricular ejection fraction 60%, wall motion normal. No mitral regurgitation. CORONARY ANGIOGRAPHY The left main coronary artery is patent. The left anterior descending coronary artery has 30% stenosis in the proximal portion and 40% stenosis in the mid portion. D1 patent, D2 patent. The left circumflex artery has 40% in the midportion. OM1 has 20% stenosis. OM2 has 20% ostial stenosis and 20% proximal stenosis. The right coronary artery is a dominant vessel which is patent. PDA is patent. PLV small and patent. DIAGNOSIS 1. Moderate nonobstructive coronary artery disease. 2. Preserved left ventricular systolic function. DISPOSITION Ms. Hartley can be reassured about her cardiac status. I see no evidence of significant obstructive coronary artery disease and preserved left ventricular systolic function. She will continue aggressive modification of her cardiac risk factors. She will be monitored overnight and can be discharged home tomorrow on her previous medications. She should follow up with her primary physician after discharge. MD JESSY Edgar/KEVIN /6:48 PM /10:43 AM
--- NOTE | 2017-03-11 11:05 | MA ---
cc: BENJA HAIRSTON DATE 03/11/2017 INDICATION Unstable angina, coronary artery disease, intermediate probability nuclear marker perfusion study. PROCEDURE PERFORMED 1. Retrograde left heart catheterization with left ventriculography and selective coronary angiography. 2. Moderate sedation ACCESS SITE Right femoral artery EQUIPMENT USED 5-[place] pigtail catheter, 5-[place] JL-4 and AR modified coronary catheters. MEDICATIONS Versed IV, Fentanyl IV CONTRAST Omnipaque 80 cc COMPLICATIONS None BLOOD LOSS Less than 10 cc METHOD OF HEMOSTASIS Vascade closure RESULTS HEMODYNAMICS Heart rate 45 beats per minute, left end diastolic pressure 5 mmHg, left ventricle 100/5, aorta 100/60/85. Left ventricular ejection fraction 60%, wall motion normal. No mitral regurgitation. CORONARY ANGIOGRAPHY The left main coronary artery is patent. The left anterior descending coronary artery has 30% stenosis in the proximal portion and 40% stenosis in the mid portion. D1 patent, D2 patent. The left circumflex artery has 40% in the midportion. OM1 has 20% stenosis. OM2 has 20% ostial stenosis and 20% proximal stenosis. The right coronary artery is a dominant vessel which is patent. PDA is patent. PLV small and patent. DIAGNOSIS 1. Moderate nonobstructive coronary artery disease. 2. Preserved left ventricular systolic function. DISPOSITION Ms. Hartley can be reassured about her cardiac status. I see no evidence of significant obstructive coronary artery disease and preserved left ventricular systolic function. She will continue aggressive modification of her cardiac risk factors. She will be monitored overnight and can be discharged home tomorrow on her previous medications. She should follow up with her primary physician after discharge. MD JESSY Edgar/KEVIN /6:48 PM /10:43 AM
--- NOTE | 2017-03-11 11:05 | MA ---
cc: BENJA HAIRSTON DATE 03/11/2017 INDICATION Unstable angina, coronary artery disease, intermediate probability nuclear marker perfusion study. PROCEDURE PERFORMED 1. Retrograde left heart catheterization with left ventriculography and selective coronary angiography. 2. Moderate sedation ACCESS SITE Right femoral artery EQUIPMENT USED 5-[place] pigtail catheter, 5-[place] Citizen JL-4 and AR modified coronary catheters. MEDICATIONS Versed IV, Fentanyl IV CONTRAST Omnipaque 80 cc COMPLICATIONS None BLOOD LOSS Less than 10 cc METHOD OF HEMOSTASIS Vascade closure RESULTS HEMODYNAMICS Heart rate 45 beats per minute, left end diastolic pressure 5 mmHg, left ventricle 100/5, aorta 100/60/85. Left ventricular ejection fraction 60%, wall motion normal. No mitral regurgitation. CORONARY ANGIOGRAPHY The left main coronary artery is patent. The left anterior descending coronary artery has 30% stenosis in the proximal portion and 40% stenosis in the mid portion. D1 patent, D2 patent. The left circumflex artery has 40% in the midportion. OM1 has 20% stenosis. OM2 has 20% ostial stenosis and 20% proximal stenosis. The right coronary artery is a dominant vessel which is patent. PDA is patent. PLV small and patent. DIAGNOSIS 1. Moderate nonobstructive coronary artery disease. 2. Preserved left ventricular systolic function. DISPOSITION Ms. Hartley can be reassured about her cardiac status. I see no evidence of significant obstructive coronary artery disease and preserved left ventricular systolic function. She will continue aggressive modification of her cardiac risk factors. She will be monitored overnight and can be discharged home tomorrow on her previous medications. She should follow up with her primary physician after discharge. MD JESSY Edgar/KEVIN /6:48 PM /10:43 AM
[2017-03-11 11:41] VITALS: BP 130/81; PULSE 50; RESP 20; TEMP 98.4; O2SAT 97
[2017-03-11] MEDS ORDERED: AMLO5TAB2 PO (12:15)
[2017-03-11] MEDS ORDERED: HYDR25TA5 PO (12:15)
[2017-03-11] MEDS ORDERED: LEVO.05 PO (12:15)
[2017-03-11] MEDS ORDERED: LISI-515 PO (12:15)
[2017-03-11] MEDS ORDERED: GLIP10TA6 PO (12:15)
[2017-03-11] MEDS ORDERED: PRAV20TA2 PO (12:15)
[2017-03-11] MEDS ORDERED: ASPI81CH37 CHEW (12:15)
--- NOTE | 2017-03-11 12:22 | HHI.PR ---
Subjective Remarks Pt feeling well, no chest pain, SOB, nausea or vomiting. would like to go home Objective Vitals Vital Signs Date Time Temp Pulse Resp B/P (MAP) Pulse Ox O2 Delivery O2 Flow Rate FiO2 03/11/17 07:20 98.6 48 17 131/76 (94) 95 03/11/17 04:00 98.6 50 20 147/79 (101) 96 03/11/17 00:00 98.5 51 20 138/78 (98) 97 03/10/17 21:15 98.5 50 20 106/65 (79) 95 03/10/17 20:21 96 Room Air 03/10/17 15:50 97.6 53 20 162/90 (114) 97 I/O 03/10/17 03/10/17 03/10/17 03/11/17 03/11/17 03/11/17 07:00 15:00 23:00 07:00 15:00 23:00 Intake Total 0 ml 360 ml Balance 0 ml 360 ml Intake Oral 0 ml 360 ml # Voids 1 2 # Bowel Movements 0 0 0 Result Diagram: 03/10/17 0720 03/10/17 0720 Imaging Last Impressions Myocardial Perfusion Scan Nuc Med 03/10/17 0000 Signed Impressions: Service Date/Time: Friday, March 10, 2017 13:31 - CONCLUSION: 1. Possible old infarcts in the midanterior wall and low inferolateral wall extending into the apex 2. Scintigraphic findings suggest a focal area of ischemia in the upper inferior/basilar segment. 3. Adequate wall motion throughout with an estimated ejection fraction of 61%%. RISK CATEGORY: Intermediate (1-3%% Annual Mortality Rate) Robert Mcgarry MD Chest X-Ray 03/09/172003 Signed Impressions: Service Date/Time: Thursday, March 09, 2017 20:32 - CONCLUSION: No acute cardiopulmonary disease. Daya Kline MD Cervical Spine X-Ray 03/09/17 0000 Signed Impressions: Service Date/Time: Thursday, March 09, 2017 20:32 - CONCLUSION: Degenerative spondylosis. Daya Kline MD Objective Remarks GENERAL: appears comfortable Eyes: Extraocular muscles are intact. NECK: Trachea midline no deviation. CARDIAC: Regular rhythm, bradycardic. No murmurs LUNGS: Clear to auscultation bilaterally. No wheezes ABDOMEN: Soft, nontender. Nondistended. EXTREMITIES: No edema. moves extremities. A/P Problem List: (1) Chest pain ICD Code: R07.9 - Chest pain Status: Acute Assessment and Plan Chest pain, atypical Patient with increased risk factors include age, hypertension, hyponatremia, diabetes, family history of heart disease serial cardiac enzymes that are negative, serial EKGs without any changes Chemical stress test did indicate focal area 30% redistribution in the high inferior/basilar wall which may represent area of ischemia Cardiology evaluated the patient. she is s/p cardiac cath. Cath showed moderate nonobstructive CAD. LV fx preserved. Per cards recs: Continue current program with aggressive risk factor modification. Restart all meds. Pt was cleared to be DC home by cards. She has been instructed to establish w a PCP soon. Hypertension, resumed home meds hyperlipidemia lipid panel reviewed Continue statin Diabetes Accu-Cheks with sliding scale insulin Hypothyroidism TSH 4.58 Resume replacement therapy Discharge Planning ok to discharge home f/u w sondra as an outpatient and establish w PCP as soon as possible condition stable heart healthy/diabetic diet activity ad luz Nilsa Adkins MD Mar 11, 2017 12:22
[2017-03-11] MEDS ORDERED: POTASSIUM CHLORIDE 20 MEQ CONTROLLED RELEASE TAB PO ONE (13:00)
[2017-03-11] MEDS ORDERED: LISINOPRIL 20 MG TAB PO ONE (13:00)
[2017-03-11] MEDS ORDERED: HYDROCHLOROTHIAZIDE 25 MG TAB PO ONE (13:00)
== END 2017-03-11 15:05 | disposition home or self-care (01) ==
LOC: PHED 19:52 → PHEDA 22:58 → PH3A 03-10 00:11 → HCIS 03-10 17:20 → HCIN 03-10 21:02
PROVIDERS: ADMIT Hospitalist; ATTEND Hospitalist
DX: I25.110 Atherosclerotic heart disease of native coronary artery with unstable angina pectoris (principal); E03.9 Hypothyroidism, unspecified; E11.9 Type 2 diabetes mellitus without complications; I10 Essential (primary) hypertension; I25.2 Old myocardial infarction; Z86.73 Personal history of transient ischemic attack (TIA), and cerebral infarction without residual deficits; R00.1 Bradycardia, unspecified; K21.9 Gastro-esophageal reflux disease without esophagitis; E78.00 Pure hypercholesterolemia, unspecified; Z79.82 Long term (current) use of aspirin; Z79.899 Other long term (current) drug therapy; I25.10 Atherosclerotic heart disease of native coronary artery without angina pectoris; Z91.14 Patient's other noncompliance with medication regimen
CPT/HCPCS: 71010; 72050; 78452; 80053; 80061; 82550; 82552; 82948; 83690; 84439; 84443; 84484; 85025; 85610; 85730; 90471; 90686; 90732; 93005; 93017; 93458; 96365; 96366; 96374; 96375; 97162; 99285; A9502; C1760; C1769; C1893; G0269; G0378; G8987; G8988; J1644; J2250; J2405; J2785; J3010; G0008; G0009; Q2038; Q9967

== ENCOUNTER 2017-10-20 09:50 | Emergency (ER) | payer SELFPAY ==
[~2017-10-20] VITALS: Ht 157.5 cm; Wt 94.6 kg
[~2017-10-20 09:50] MED LIST changes: -ASPI1TAB69 PO; +ASPI81CH6 CHEW; -LOVA20TA PO; -MELO-1 PO; -METF850T PO; +PRAV20TA2 PO
[2017-10-20 09:52] VITALS: BP 217/104; PULSE 66; RESP 18; TEMP 98.1; O2SAT 97
[2017-10-20] MEDS ORDERED: LOVA20TA PO (10:00)
[2017-10-20] MEDS ORDERED: METF500T PO ×2 (10:00→11:14)
[2017-10-20] MEDS ORDERED: cloNIDine HCL 0.2 MG TAB PO ONE (10:15)
[2017-10-20 10:22] LABS: AUTOMATED NEUTROPHIL # 2.7 TH/MM3 (1.8-7.7); BASOPHIL % 0.6 % (0.0-2.0); EOSINOPHIL # 0.1 TH/MM3 (0-0.4); EOSINOPHIL % 2.1 % (0.0-4.0); HEMATOCRIT 37.9 % (35.0-46.0); HEMOGLOBIN 13.1 GM/DL (11.6-15.3); LYMPH % 32.2 % (9.0-44.0); LYMPHOCYTE # 1.5 TH/MM3 (1.0-4.8); MEAN CORPUSCULAR HEMOGLOBIN 28.8 PG (27.0-34.0); MEAN CORPUSCULAR HGB CONC 34.7 % (32.0-36.0); MEAN PLATELET VOLUME 9.2 FL (7.0-11.0); MONO % 7.9 % (0.0-8.0); MONOCYTE # 0.4 TH/MM3 (0-0.9); NEUT % 57.2 % (16.0-70.0); PLATELET COUNT 203 TH/MM3 (150-450); RED BLOOD COUNT 4.56 MIL/MM3 (4.00-5.30); RED CELL DISTRIBUTION WIDTH 13.3 % (11.6-17.2); WHITE BLOOD COUNT 4.7 TH/MM3 (4.0-11.0)
--- NOTE | 2017-10-20 10:30 | PD ---
HPI Chief Complaint: Hypertension Time Seen by Provider: 09:58 Travel History International Travel<30 days: No Contact w/Intl Traveler<30days: No Traveled to known affect area: No History of Present Illness HPI This 56-year-old female presents for treatment of high blood pressure. She has a long history of high blood pressure for which she has been on medication. Most recently she has been on lisinopril 20 mg daily and another medication she is not sure of. She has not had anything for the last 6 or 7 months. He has been having a headache for the last few days. PFSH Past Medical History Hx Anticoagulant Therapy: Yes (ASA 81MG DAILY) Arthritis: Yes Autoimmune Disease: No Anxiety: No Depression: No Heart Rhythm Problems: Yes ([place]) Cancer: No Cardiac Catheterization: Yes (x 6+) Cardiovascular Problems: Yes High Cholesterol: Yes Chemotherapy: No Chest Pain: Yes Congestive Heart Failure: No Cerebrovascular Accident: Yes Coronary Artery Disease: Yes Diabetes: Yes Patient Takes Glucophage: No Diminished Hearing: No Endocrine: Yes Gastrointestinal Disorders: Yes GERD: Yes Genitourinary: No Hiatal Hernia: Yes Hypertension: Yes Immune Disorder: No Musculoskeletal: Yes Neurologic: Yes Psychiatric: No Reproductive: No Respiratory: No Immunizations Current: Yes Migraines: No Myocardial Infarction: Yes (X2) Radiation Therapy: No Seizures: No Thyroid Disease: Yes Ulcer: No Menopausal: Yes Tubal Ligation: Yes Past Surgical History Abdominal Surgery: Yes (CHOLECYSTECTOMY) AICD: No Arteriovenous Shunt: No Cardiac Surgery: Yes (CARDIAC CATH X 2) Cholecystectomy: Yes Coronary Artery Bypass Graft: No Ear Surgery: No Endocrine Surgery: No Eye Surgery: No Genitourinary Surgery: No Gynecologic Surgery: Yes (TUBAL LIGATION) Insulin Pump: No Joint Replacement: No Neurologic Surgery: No Oral Surgery: No Pacemaker: No Thoracic Surgery: No Other Surgery: Yes Family History Family Myocardial Infarction: Yes Social History Alcohol Use: No Tobacco Use: No Substance Use: No Allergies-Medications (Allergen,Severity, Reaction): Coded Allergies: codeine (Verified Adverse Reaction, Intermediate, 10/20/17) Reported Meds & Prescriptions Reported Meds & Active Scripts Active Pravastatin 20 Mg Tab 20 Mg PO HS Metformin (Metformin HCl) 500 Mg Tab 500 Mg PO BIDPC Aspirin Low Dose (Aspirin) 81 Mg Chew 81 Mg CHEW DAILY Synthroid (Levothyroxine Sodium) 50 Mcg Tab 50 Mcg PO DAILY Lisinopril 20 Mg Tab 20 Mg PO DAILY Hydrochlorothiazide 25 Mg Tab 25 Mg PO DAILY Amlodipine (Amlodipine Besylate) 5 Mg Tab 10 Mg PO DAILY Reported Lovastatin 20 Mg Tab 20 Mg PO HS Review of Systems Except as stated in HPI: all other systems reviewed are Neg Physical Exam Narrative GENERAL: Well-developed female SKIN: Focused skin assessment warm/dry. HEAD: Atraumatic. Normocephalic. EYES: Pupils equal and round. No scleral icterus. No injection or drainage. ENT: No nasal bleeding or discharge. Mucous membranes pink and moist. NECK: Trachea midline. No JVD. CARDIOVASCULAR: Regular rate and rhythm. No murmur appreciated. RESPIRATORY: No accessory muscle use. Clear to auscultation. Breath sounds equal bilaterally. GASTROINTESTINAL: Abdomen soft, non-tender, nondistended. Hepatic and splenic margins not palpable. MUSCULOSKELETAL: No obvious deformities. No clubbing. No cyanosis. No edema. NEUROLOGICAL: Awake and alert. No obvious cranial nerve deficits. Motor grossly within normal limits. Normal speech. PSYCHIATRIC: Appropriate mood and affect; insight and judgment normal. Data Data Last Documented VS Vital Signs Date Time Temp Pulse Resp B/P (MAP) Pulse Ox O2 Delivery O2 Flow Rate FiO2 10/20/17 11:16 47 16 174/87 (116) 97 Room Air 10/20/17 09:52 98.1 Orders Orders Electrocardiogram (10/20/17 10:08) Complete Blood Count With Diff (10/20/17 10:08) Basic Metabolic Panel (Bmp) (10/20/17 10:08) Clonidine (Catapres) (10/20/17 10:15) Troponin I (10/20/17 10:57) Potassium Chloride (Kcl) (10/20/17 11:15) Labs Laboratory Tests Test 10/20/17 10:13 White Blood Count 4.7 TH/MM3 Red Blood Count 4.56 MIL/MM3 Hemoglobin 13.1 GM/DL Hematocrit 37.9 % Mean Corpuscular Volume 83.0 FL Mean Corpuscular Hemoglobin 28.8 PG Mean Corpuscular Hemoglobin Concent 34.7 % Red Cell Distribution Width 13.3 % Platelet Count 203 TH/MM3 Mean Platelet Volume 9.2 FL Neutrophils (%) (Auto) 57.2 % Lymphocytes (%) (Auto) 32.2 % Monocytes (%) (Auto) 7.9 % Eosinophils (%) (Auto) 2.1 % Basophils (%) (Auto) 0.6 % Neutrophils # (Auto) 2.7 TH/MM3 Lymphocytes # (Auto) 1.5 TH/MM3 Monocytes # (Auto) 0.4 TH/MM3 Eosinophils # (Auto) 0.1 TH/MM3 Basophils # (Auto) 0.0 TH/MM3 CBC Comment DIFF FINAL Differential Comment Blood Urea Nitrogen 12 MG/DL Creatinine 0.98 MG/DL Random Glucose 161 MG/DL Calcium Level 8.4 MG/DL Sodium Level 140 MEQ/L Potassium Level 3.2 MEQ/L Chloride Level 106 MEQ/L Carbon Dioxide Level 27.6 MEQ/L Anion Gap 6 MEQ/L Estimat Glomerular Filtration Rate 58 ML/MIN Troponin I LESS THAN 0.02 NG/ML MDM Medical Decision Making Medical Screen Exam Complete: Yes Emergency Medical Condition: Yes Medical Record Reviewed: Yes Differential Diagnosis Differential includes hypertension, noncompliance, Narrative Course EKG shows sinus rhythm. There are inverted T's in the lateral leads which were not previously present. However her potassium was 3.2. She did have a fairly recent cardiac cath which did not show any obstructive coronary artery disease. Her blood pressure is responded to the clonidine. She will be released with prescription renewals Diagnosis Primary Impression: Hypertension Scripts Pravastatin (Pravastatin) 20 Mg Tab 20 MG PO HS for Cholesterol Management, #30 TAB 0 Refills Prov: Artur Holland MD 10/20/17 Metformin (Metformin) 500 Mg Tab 500 MG PO BIDPC for Blood Sugar Management, #60 TAB 0 Refills Prov: Artur Holland MD 10/20/17 Aspirin (Aspirin Low Dose) 81 Mg Chew 81 MG CHEW DAILY, #30 TAB 0 Refills Prov: Artur Holland MD 10/20/17 Levothyroxine (Synthroid) 50 Mcg Tab 50 MCG PO DAILY for Thyroid, #30 TAB 0 Refills Prov: Artur Holland MD 10/20/17 Lisinopril (Lisinopril) 20 Mg Tab 20 MG PO DAILY, #30 TAB 0 Refills Prov: Artur Holland MD 10/20/17 Hydrochlorothiazide (Hydrochlorothiazide) 25 Mg Tab 25 MG PO DAILY, #30 TAB 0 Refills Prov: Artur Holland MD 6/6/18 Disposition: 01 DISCHARGE HOME Condition: Stable MacMahon,Artur MD Oct 20, 2017 10:30
[2017-10-20 10:37] LABS: CALCIUM 8.4 MG/DL (8.5-10.1)
[2017-10-20 10:38] LABS: BICARBONATE 27.6 MEQ/L (21.0-32.0)
[2017-10-20 10:41] LABS: CREATININE 0.98 MG/DL (0.50-1.00)
[2017-10-20] MEDS ORDERED: HYDR25TA5 PO (11:14)
[2017-10-20] MEDS ORDERED: LISI-515 PO (11:14)
[2017-10-20] MEDS ORDERED: PRAV20TA2 PO (11:14)
[2017-10-20] MEDS ORDERED: LEVO.05 PO (11:14)
[2017-10-20] MEDS ORDERED: ASPI81CH6 CHEW (11:14)
[2017-10-20] MEDS ORDERED: POTASSIUM CHLORIDE 20 MEQ CONTROLLED RELEASE TAB PO ONE (11:15)
[2017-10-20 11:16] VITALS: BP 174/87; PULSE 47; RESP 16; O2SAT 97
[2017-10-20 12:00] VITALS: BP 150/76; PULSE 50; RESP 16; O2SAT 97
--- NOTE | 2017-10-20 18:18 | EKG ---
Date Performed: 10/20/2017 Time Performed: 10:19:20 PTAGE: 56 years EKG: SINUS BRADYCARDIA LEFT VENTRICULAR HYPERTROPHY AND ST-T CHANGE ABNORMAL ECG PREVIOUS TRACING : 03/10/2017 08.15 Since the previous tracing, no significant change noted DOCTOR: Ashly oYo Interpretating Date/Time 10/20/2017 18:17:36
== END 2017-10-20 12:24 | disposition home or self-care (01) ==
LOC: PHED 09:50
DX: I10 Essential (primary) hypertension (principal); R94.31 Abnormal electrocardiogram [ECG] [EKG]; M19.90 Unspecified osteoarthritis, unspecified site; E78.00 Pure hypercholesterolemia, unspecified; E11.9 Type 2 diabetes mellitus without complications; I25.10 Atherosclerotic heart disease of native coronary artery without angina pectoris; K21.9 Gastro-esophageal reflux disease without esophagitis; E07.9 Disorder of thyroid, unspecified; Z86.73 Personal history of transient ischemic attack (TIA), and cerebral infarction without residual deficits
CPT/HCPCS: 80048; 84484; 85025; 93005; 99284